=== PATIENT | female | born 1955 | race Caucasian/White ===

== ENCOUNTER 2021-01-25 09:37 | Outpatient (CLI) | payer MEDICARE, SELFPAY ==
--- NOTE | ~2021-01-25 | DEXA_ITS ---
Bone Density Report Name: Olga Flower Age: 65 Sex: Female Ethnicity: White Date of : 1955 Indication: postmenopausal; height loss; Referring Provider: Daniella James Study: Bone densitometry was performed. Exam Date: January 25, 2021 Accession number: [id number] Bone Density: Region BMD T-score Z-score Classification AP Spine (L1-L4) 0.922 -1.1 0.7 Osteopenia Femoral Neck (Left) 0.603 -2.2 -0.6 Osteopenia Total Hip (Left) 0.795 -1.2 0.1 Osteopenia Total Hip Bilateral Avg 0.759 -1.5 -0.2 Osteopenia Femoral Neck (Right) 0.591 -2.3 -0.7 Osteopenia Total Hip (Right) 0.722 -1.8 -0.5 Osteopenia World Health Organization criteria for BMD impression classify patients as: Normal (T-score at or above -1.0), Osteopenia (T-score between -1.0 and -2.5), or Osteoporosis (T-score at or below -2.5). 10-year Fracture Risk(1): Major Osteoporotic Fracture 12% Hip Fracture 2.2% Reported Risk Factors: [place] (), Neck BMD=0.591, BMI=27.9 (1) FRAX(R) Version 3.08. Fracture probability calculated for an untreated patient. Fracture probability may be lower if the patient has received treatment. Clinical Information Provided by Patient: Has used the following medications: Vitamin D Patient maximum height was 64.5 Menopause Age: 54 Drinks caffeinated beverages Onset of menses at age 12 Number of children 2 Impression: The patient has low bone mass, based on the Right Femoral Neck T-score. The patient has an estimated ten-year risk of hip fracture of 2.2% and an estimated ten-year risk of major fracture of 12%, based on the WHO FRAX algorithm. Discussion: BONE DENSITY IS LOW AT ONE OR MORE SKELETAL SITES. This patient's lowest T-score is low at one or more skeletal sites. It meets the World Health Organization's (WHO) criteria for ?low bone mass? (T-score between -1.0 and -2.5). The patient's 10-year risk of fracture as calculated by FRAX is less than the threshold where pharmacological therapy is recommended by the National Osteoporosis Foundation (NOF). However, all treatment decisions require clinical judgment and consideration of individual patient factors, including patient preferences, comorbidities, previous drug use, risk factors not captured in the FRAX model (e.g., frailty, falls, vitamin D deficiency, increased bone turnover, interval significant decline in bone density) and possible under or overestimation of fracture risk by FRAX. The patient should follow a healthful lifestyle (good nutrition with adequate calcium and vitamin D, and appropriate weight-bearing exercise). Follow-Up: Consider repeating this study in 2 to 3 years to reassess this patient's status, or sooner if there is some new clinical indication. Reported by: [facility] on 01/25/2021 10:05:00 AM.
--- NOTE | ~2021-01-25 | MM_ITS ---
EXAMINATION: MM screening robinson BI w irene HISTORY: Screening mammogram TECHNIQUE: Craniocaudal and mediolateral oblique 3-D tomosynthesis images were obtained and synthetic 2-D images were generated. CAD analysis was submitted and interpreted. COMPARISON: No prior mammogram is available for comparison at this institution. BREAST PARENCHYMAL COMPOSITION: There are scattered areas of fibroglandular density. FINDINGS: RIGHT BREAST: An asymmetry is present in the middle third of the lower-outer breast on the craniocaud al view. LEFT BREAST: There is no evidence of suspicious mass, calcification, or architectural distortion to s uggest malignancy. IMPRESSION: 1. Right breast asymmetry which may represent the patient's baseline however no comparison is current ly available. 2. Comparison with prior mammograms is necessary. BI-RADS Category 0: Incomplete: Needs comparison with prior mammograms. Reviewed, dictated and finalized at location A. IMPRESSION: 1. Right breast asymmetry which may represent the patient's baseline however no comparison is currently available. 2. Comparison with prior mammograms is necessary. BI-RADS Category 0: Incomplete: Needs comparison with prior mammograms.
== END 2021-01-25 09:38 | disposition home or self-care (01) ==
PROVIDERS: PCP Family Medicine; Visit Provider Nurse Practitioner Family
DX: Z12.31 Encounter for screening mammogram for malignant neoplasm of breast (principal); Z78.0 Asymptomatic menopausal state; M85.89 Other specified disorders of bone density and structure, multiple sites; R92.8 Other abnormal and inconclusive findings on diagnostic imaging of breast
CPT/HCPCS: 77063; 77067; 77080

== ENCOUNTER 2021-04-14 11:30 | Outpatient (CLI) | payer MEDICARE, SELFPAY ==
--- NOTE | ~2021-04-14 | MM_ITS ---
EXAMINATION: MM diagnostic robinson RT w irene HISTORY: Follow-up right breast asymmetry TECHNIQUE: Additional 3-D tomosynthesis images of the right breast were performed and synthetic 2-D i mages were generated. CAD analysis was submitted and interpreted. COMPARISON: Comparison to multiple prior studies sequentially, with oldest reviewed study dated 01/04. BREAST PARENCHYMAL COMPOSITION: Breast composed of scattered areas of fibroglandular density. FINDINGS: There are no suspicious masses, calcifications or architectural distortion in the right tequila ast to suggest malignancy. IMPRESSION: 1. No mammographic evidence for malignancy in the right breast. 2. Routine yearly screening mammogram and regular clinical breast examination are recommended. BI-RADS Category 1: Negative Reviewed, dictated and finalized at location A. IMPRESSION: 1. No mammographic evidence for malignancy in the right breast. 2. Routine yearly screening mammogram and regular clinical breast examination a re recommended. BI-RADS Category 1: Negative
== END 2021-04-14 11:31 | disposition home or self-care (01) ==
LOC: ANHIMG 11:35
PROVIDERS: PCP Family Medicine; Visit Provider Family Medicine
DX: R92.8 Other abnormal and inconclusive findings on diagnostic imaging of breast (principal)
CPT/HCPCS: 77061; 77065; G0279

== ENCOUNTER 2023-03-14 13:08 | Outpatient (CLI) | payer MEDICARE, SELFPAY ==
--- NOTE | ~2023-03-14 | US_ITS ---
EXAMINATION: US soft tissue LE LT DATE: 03/14/2023 14:05 INDICATION: Bump on anterior aspect of the left lower leg. TECHNIQUE: Multiple grayscale and Doppler ultrasound images of the left lower limb were obtained. COMPARISON: None FINDINGS: There is subcutaneous edema anterior to the proximal tibia. IMPRESSION: 1. Subcutaneous edema anterior to the proximal tibia. Reviewed, dictated and finalized at location E.
== END 2023-03-14 13:09 | disposition home or self-care (01) ==
PROVIDERS: PCP Family Medicine; Visit Provider Physician Assistant Medical
DX: M79.89 Other specified soft tissue disorders (principal); M25.849 Other specified joint disorders, unspecified hand
CPT/HCPCS: 76882

== ENCOUNTER 2024-04-24 12:55 | Outpatient (CLI) | payer MEDICARE, SELFPAY ==
--- NOTE | ~2024-04-24 | MM_ITS ---
EXAMINATION: MM screening robinson BI w irene HISTORY: Screening mammogram TECHNIQUE: Craniocaudal and mediolateral oblique 3-D tomosynthesis images were obtained and synthetic 2-D images were generated. CAD analysis was submitted and interpreted. COMPARISON: 04/14/2021, 01/25/2021 BREAST PARENCHYMAL COMPOSITION:Not Dense. There are scattered areas of fibroglandular density. FINDINGS: No suspicious mass, calcification, or architectural distortion are identified in either tequila ast to suggest malignancy. There has been no suspicious interval change. IMPRESSION: No mammographic evidence of malignancy. Recommend routine screening mammography in one year. BI-RADS Category 1: Negative Reviewed, dictated and finalized at location . 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
--- NOTE | ~2024-04-24 | DEXA_ITS ---
Bone Density Report Name: CHANTEL BRITO Age: 68 Sex: Female Ethnicity: White Date of : 1955 Indication: postmenopausal; screening for osteoporosis; height loss; Referring Provider: BRENDA BARRERA Study: Bone densitometry was performed. Exam Date: April 24, 2024 Accession number: [id number] Bone Density: Region BMD T-score Z-score Classification AP Spine(L1-L4) 0.931 -1.1 1.0 Osteopenia Femoral Neck (Left) 0.544 -2.7 -1.0 Osteoporosis Total Hip (Left) 0.773 -1.4 0.1 Osteopenia Femoral Neck (Right) 0.604 -2.2 -0.4 Osteopenia Total Hip (Right) 0.844 -0.8 0.7 Normal Total Hip Mean 0.809 -1.1 0.4 Osteopenia World Health Organization criteria for BMD impression classify patients as: Normal (T-score at or above -1.0), Osteopenia (T-score between -1.0 and -2.5), or Osteoporosis (T-score at or below -2.5). 10-year Fracture Risk: FRAX not reported because: Some T-score for Spine Total or Hip Total or Femoral Neck at or below -2.5 Clinical Information Provided by Patient: Has used the following medications: Vitamin D Patient maximum height was 64 Menopause Age: 54 No regular weight bearing exercise Drinks caffeinated beverages Onset of menses at age 13 Number of children 2 Impression: The patient has osteoporosis, based on the Left Femoral Neck T-score. Discussion: INCREASED RISK OF FRACTURE. BONE DENSITY IS UNDESIRABLY LOW AT ONE OR MORE SKELETAL SITES, CONSISTENT WITH POSTMENOPAUSAL OSTEOPOROSIS. This patient's lowest T-score meets the World Health Organization's (WHO) criteria for osteoporosis at one or more sites (T-score -2.5 or below). In untreated patients, the risk of osteoporotic fracture increases approximately two-fold for each 1.0 SD decrease in T-score. Low bone density is not the only risk factor for fracture; also consider factors such as patient's age, frailty or poor health, risk of falling, risk of injury, previous osteoporotic fracture, family history of osteoporosis, cigarette smoking, low body weight, etc. Not everyone with low bone mineral density has osteoporosis; osteomalacia and other metabolic bone disorders should also be considered. Patients who have osteoporosis should be evaluated for specific diseases and conditions (secondary causes) that may cause or contribute to bone loss. The [place] Association [employer] Clinical Endocrinologists (AACE) and National Osteoporosis Foundation (NOF) recommend pharmacologic intervention for all postmenopausal women whose T-score is in this range. The patient should follow a healthful lifestyle (good nutrition with adequate calcium and vitamin D, and appropriate weight-bearing exercise). Follow-Up: Consider a repeat BMD and Vertebral Fracture Assessment (VFA) exam in 2 years or sooner if medically necessary, to reassess this patient's status. Reported by: SINTIA on 04/24/2024 1:34:00 PM. Reviewed, dictated and finalized at location A. QUYNH
== END 2024-04-24 12:56 | disposition home or self-care (01) ==
LOC: ANHIMG 12:58
PROVIDERS: PCP Family Medicine; Visit Provider Nurse Practitioner Adult Health
DX: Z12.31 Encounter for screening mammogram for malignant neoplasm of breast (principal); M85.89 Other specified disorders of bone density and structure, multiple sites; Z78.0 Asymptomatic menopausal state
CPT/HCPCS: 77063; 77067; 77080

== ENCOUNTER 2024-08-04 19:29 | Observation (INO) | payer MEDICARE, SELFPAY ==
--- NOTE | ~2024-08-04 | CT_ITS ---
Non-contrast Head CT History: Altered mental status Technique: Axial non-contrast imaging of the brain was performed. Dose reduction technique was used on this scan by utilizing automated exposure control and iterative reconstruction technique. The dose -length product (DLP) was 681.00 mGy-cm. Findings: There is no evidence of intracranial hemorrhage, mass lesion, or acute infarct. Brain par enchyma appears normal. The ventricles and subarachnoid spaces are normal in size. The calvarium ap pears normal. The visualized paranasal sinuses and mastoid air cells are clear. Impression: No significant abnormality seen. Reviewed, dictated and finalized at location . NG TIER Impression: No significant abnormality seen.
--- OUTSIDE RECORDS SUMMARY | 2024-08-04 19:32 | XMS_ITS | Clinical Summary ---
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 Gender Identity Not on file Sexual Orientation Not on file Plan of Treatment Health Maintenance Due Date Last Done Comments DEXA Bone Density 1955 Hepatitis C Virus (HCV) Screening 1955 Colonoscopy 09/03/1999 Colorectal Cancer Screening 09/03/1999 Cologuard 2004 Immunochemical Fecal Occult Blood 2004 Mammogram 2004 Pneumococcal Immunization (5 0+ years) (1 of 1 - PCV) 2004 Zoster Immunization (1 of 2) 2004 Influenza Immunization (#1) 2024 SARS-COV-2 Immunization ( - season) 2024 Respiratory Syncytial Virus (RSV) Immunization (Adult) (1 - 1-dose 75+ series) 2029 DTaP/Tdap/Td Immunization Discontinued 10/06/2013 TdaP Immunization Completed 10/06/2013 Hepatitis B Immunization Aged Out No longer eligible based on patient's age to complete this topic Meningococcal Immunization (ACWY) Aged Out No longer eligible based on patient's age to complete this topic Rotavirus Immunization Aged Out No lo nger eligible based on patient's age to complete this topic
--- OUTSIDE RECORDS SUMMARY | 2024-08-04 19:32 | XMS_ITS | Clinical Summary ---
Author Organization [facility] [employer] Address [address] [place] [address] Care Team Providers Care Offal Roller Name Role Phone Alireza Cohen MD Primary Care Provider [phone] Source Comments [facility] [employer],non-owned Affiliates and Associated Physician Practices is amultiple site organization consisting of ambulatory clinics and hospital sitesin [place], [place], [place] and [place]. This disclosure is being madepursuant to the Care Everywhere program and may not contain all information available regarding this patient. Last updated 18.[facility] [employer] Allergies No known active allergies Medications * Be aware that medications may not be up to date on this document. Alwaysverify current medications with the patient. Medication Sig Dispensed Refills Start Date End Date Status multivitamin daily (THERAGRAN) tablet Take 1 tablet by mouth daily with food Active fluticasone furoate (FLONASE SENSIMIST/VERAMYST) 27.5 MCG/SPRAY nasal spray [place] 1 spray into each nostril 2 times daily Active Vitamin D, Cholecalciferol, 50 MCG (1999) CAPS Take 1 tablet by mouth Active lisinopril (PRINIVIL; ZESTRIL) 2.5 MG tablet TAKE 1 TABLET ONCE DAILY 90 tablet 3 05/16/2020 Active Active Problems Problem Noted Date Diagnosed Date HTN (hypertension) 11/29/2014 Hypercholesteremia 11/29/2014 Family History Medical History Relation Name Comments CVA<55(male) Father Hypertension Father CVA<65(female) Mother Thyroid Disease Mother Thyroid Disease Sister Cancer - Breast Neg Hx Cancer - Ovarian Neg Hx Relation Name Status Comments Father Alive Mother Alive Sister Social History Tobacco Use Types Packs/Day Years Used Date Smoking Tobacco: Never Smokeless Tobacco: Never Alcohol Use Standard Drinks/Week Comments Yes 0 (1 standard drink = 0.6 oz pur e alcohol) 1 glass wine per month approx Sex and Gender Information Value Date Recorded Sex Assigned at Not on file Gender Identity Not on file Sexual Orientation Not on file Last Filed Vital Signs Vital Sign Reading Time Taken Comments Blood Pressure 132/69 11/26/2019 9:43 AM CDT Pulse 75 11/26/2019 9:43 AM CDT Temperature 36.1 C (97 F) 11/26/2019 9:43 AM CDT Respiratory Rate 16 06/07/2015 3:05 PM 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 Oxygen Saturation 99% 11/26/2019 9:43 AM CDT Inhaled Oxygen Concentration - - Weight 74.8 kg (165 lb) 11/26/2019 9:43 AM CDT Height 162.6 cm (5' 4 ) 11/26/2019 9:43 AM CDT Body Mass Index 28.32 11/26/2019 9:43 AM CDT Plan of Treatment Health Maintenance Due Date Last Done Comments COLOGUARD (AGES 45-75) - COLON CA SCREENING [address] COLONOGRAPHY - COLON CA SCREENING 1955 FIT - COLON CA SCREENING 1955 FLEX SIG - COLON CA SCREENING 1955 HEPATITIS C SCREENING 08/28/1972 DTAP/TDAP/TD VACCINES (1 - Tdap) 1973 PNEUMOCOCCAL VACCINE 50+ (1 of 1 - PCV) 2004 ZOSTER VACCINE (1 of 2) 2004 MAMMOGRAM 01/22/2018 01/23/2016, 01/04/2014 COLONOSCOPY - COLON CA SCREENING 11/30/2019 11/29/2009 (Previously completed) Colorectal Cancer Screening 11/30/2019 SCREENING FOR DIABETES 11/22/2022 0, 10/10/2018, 05/10/2017 COVID-19 VACCINE (1 - 2023- season) 2024 INFLUENZA VACCINE (#1) 2024 DEPRESSION SCREENING 06/10/2024 MEDICARE AWV CALENDAR YEAR 2024 LIPID TESTING 11/22/2024 11/23/2019, 05/0 08/2018, 05/10/2017, Additional history exists Respiratory Syncytial Virus (RSV) Vaccine Pt: or over 60 yrs (1 - 1-dose 75+ series) 2029 BONE DENSITY TESTING Completed 01/23/2016 HEPATITIS B VACCINE Aged Out No longe r eligible based on patient's age to complete this topic HIB VACCINE Aged Out No longer eligi ble based on patient's age to complete this topic HPV VACCINE Aged Out No longer eligi ble based on patient's age to complete this topic MENINGOCOCCAL (Group B) VACCINE Aged Out No longer eligible based on patient's age to complete this topic MENINGOCOCCAL VACCINE Aged Out No hayley jovan eligible based on patient's age to complete this topic Procedures Procedure Name Priority Date/Time Associated Diagnosis Comments COMPREHENSIVE METABOLIC PANEL Routine 11/23/2019 9:56 AM CDT Essential hypertension Slow transit constipation LIPID PROFILE Routine 11/23/2019 9:56 AM CDT Hypercholesteremia DEXA BONE DENSITY 2 SITES Routine 01/23/2016 9:27 AM CDT Encounter for screening for osteoporosis MAMMO BILAT SCREENING Routine 01/23/2016 9:11 AM CDT Encounter for screening mammogram for malignant neoplasm of breast from Last 3 Months or Most Recently Relevant to Health Maintenance Results * (ABNORMAL) COMPREHENSIVE METABOLIC PANEL (11/23/2019 9:56 AM CDT) Glucose 96 70 - 125 mg/dL 11/23/2019 12:43 PM CDT [facility] Sodium 139 136 - 145 mmol/L 11/23/2019 12:43 PM CDT [facility] Potassium 4.0 3.4 - 4.5 mmol/L 11/23/2019 12:43 PM CDT [facility] Chloride 105 98 - 107 mmol/L 11/23/2019 12:43 PM CDT [facility] CO2 26 22 - 29 mmol/L 11/23/2019 12:43 PM CDT [facility] Calcium 9.33 8.4 - 10.2 mg/dL 11/23/2019 12:43 PM CDT [facility] Anion Gap 12 10 - 20 mmol/L 11/23/2019 12:43 PM CDT [facility] BUN 9.5(L) 9.8 - 20.1 mg/dL 11/23/2019 12:43 PM CDT [facility] Creatinine 0.72 0.57 - 1.11 mg/dL 11/23/2019 12:43 PM CDT [facility] eGFR by MDRD >60 >60 mL/min/1.7 3m2 11/23/2019 12:43 PM CDT [facility] eGFR by MDRD >60 >60 mL/min/1.7 3m2 11/23/2019 12:43 PM CDT [facility] Alkaline Phosphatase 87 40 - 150 U/L 11/23/2019 12:43 PM CDT [facility] ALT 17 5 - 55 U/L 11/23/2019 12:43 PM CDT [facility] AST 20 5 - 34 U/L 11/23/2019 12:43 PM CDT [facility] Protein Total 7.4 6.4 - 8.3 gm/dL 11/23/2019 12:43 PM CDT [facility] Albumin 3.9 3.5 - 5.0 gm/dL 11/23/2019 12:43 PM CDT [facility] Globulin Total 3.5 2.6 - 4.0 gm/dL 11/23/2019 12:43 PM CDT [facility] Albumin/Globulin Ratio 1.1 0.9 - 1.6 11/23/2019 12:43 PM CDT [facility] Bilirubin Total 0.5 0.2 - 1.2 mg/dL 11/23/2019 12:43 PM CDT [facility] Blood BLOOD SPECIMEN / Unknown Venipuncture / Unknown 11/23/2019 9:56 AM CDT 11/23/2019 9:56 AM CDT Alireza Cohen MD LAB - CHEMISTRY ORD ERABLES [facility] [address] [place], [place] [address] * (ABNORMAL) LIPID PROFILE (11/23/2019 9:56 AM CDT) Cholesterol 225(H) <200 mg/dL 11/23/2019 12:43 PM CDT [facility] Triglycerides 121 <150 mg/dL 11/23/2019 12:43 PM CDT [facility] HDL Cholesterol 52 >40 mg/dL 0 12:43 PM CDT [facility] Chol HDL Ratio 4.3 1.0 - 6.0 11/23/2019 12:43 PM CDT [facility] LDL Calculated 149(H) 65 - 130 mg/dL 11/23/2019 12:43 PM CDT [facility] VLDL Calculated 24 <=30 mg/dL 0 12:43 PM CDT [facility] Blood BLOOD SPECIMEN / Unknown Venipuncture / Unknown 11/23/2019 9:56 AM CDT 11/23/2019 9:56 AM CDT Narrative [facility] - 11/23/2019 12:43 PM CDT Lipid Profile Comment: CHOLESTEROL LEVEL..................CLINICAL INTERPRETATION LESS THAN 200 MG/DL..............................DESIRABLE 200-239 MG/DL..............................BORDERLINE HIGH GREATER THAN 240 MG/DL................................HIGH LDL-CHOLESTEROL LEVEL..............CLINICAL INTERPRETATION LESS THAN 100 MG/DL................................OPTIMAL 100-129 MG/DL.................................NEAR OPTIMAL GREATER THAN 160 MG/DL...........................HIGH RISK HDL RISK LEVEL GREATER THEN 60 MG/DL............................DECREASED 40-60 MG/DL........................................AVERAGE LESS THAN 40 MG/DL...............................INCREASED TRIGLYCERIDE LEVEL..................CLINICAL INTERPRETATION LESS THAN 150 MG/DL...............................DESIRABLE 150-199 MG/DL...............................BORDERLINE HIGH 200-499 MG/DL..........................................HIGH GREATER THAN 500..................................VERY HIGH THE NATIONAL CHOLESTEROL EDUCATION PROGRAM HAS SET THE ABOVE GUIDELINES (REFERANCE VALUES) FOR CHOLESTEROL AND HDL. RISK ASSOCIATED WITH CHOLESTEROL/HDL RATIOS RISK....................MALE RATIO.............FEMALE RATIO 1/2 AVERAGE.................<3.4.......................<3.3 LOW RISK.................... 4.0 ...................... 3.8 AVERAGE..................... 5.0 ...................... 4.5 2X AVERAGE.................. 9.5 ...................... 7.0 3X AVERAGE...................>23........................>11 Alireza Cohen MD LAB - CHEMISTRY ORD ERABLES [facility] [address] [place] [address], [facility] * DEXA BONE DENSITY [id number] (01/23/2016 9:27 AM CDT) Anatomical Region Laterality Modality Radiographic Angeilna ging 01/23/2016 9:36 AM CDT Impressions 01/23/2016 10:18 AM CDT 1. Osteopenia. 2. Some increased risk for fracture. 3. Followup in 1 to 2 years. Narrative 01/23/2016 10:18 AM CDT BONE MINERAL DENSITY (01/23/2016) FINDINGS: 1. Hip joints: A. BMD 0.619. B. T score -1.5. Z score -0.7. 2. Lumbar spine: A. BMD 1.117. B. T score -0.7. Z score 0.3. Procedure Note Masood Azul MD - 01/23/2016 BONE MINERAL DENSITY (01/23/2016) FINDINGS: 1. Hip joints: A. BMD 0.619. B. T score -1.5. Z score -0.7. 2. Lumbar spine: A. BMD 1.117. B. T score -0.7. Z score 0.3. IMPRESSION 1. Osteopenia. 2. Some increased risk for fracture. 3. Followup in 1 to 2 years. Mary Ellen Paez APRN-ISA DEXA ORDERABLES * ABHI SCREENING BILATERAL DIGITAL [id number] (01/23/2016 9:11 AM CDT) Anatomical Region Laterality Modality Breast Bilateral Mammography 01/24/2016 9:30 AM CDT Impressions 01/24/2016 9:57 AM CDT No radiographic evidence of malignancy identified in either breast. BI-RADS Category 2. Bilateral mammography recheck suggested in one year. A) A negative report should not delay a biopsy if a dominant or clinically suspicious mass is present. B) Adenosis and dense breasts may obscure an underlying neoplasm. C) Study interpreted with computer aided detection. MQSA BI-RADS Categories: Category 0 - needs additional imaging evaluation. Category 1 - negative. Category 2 - benign findings. Category 3 - probably benign findings, but short interval follow-up is recommended. Category 4 - suspicious abnormality and biopsy should be considered though the lesion may well be benign. Category 5 - highly suggestive of malignancy and appropriate action should be taken. Narrative 01/24/2016 9:57 AM CDT BILATERAL DIGITAL SCREENING MAMMOGRAPHY WITH 3-D TOMOSYNTHESIS AND COMPUTER-AIDED DETECTION: (01/23/2016) HISTORY: No complaints listed referable to either breast. Screening examination. Breast cancer in paternal aunt at age 70. FINDINGS: 2-D mammography and 3-D tomosynthesis performed. Heterogeneously dense breast parenchymal pattern similar to 01/04/2014. Benign-appearing calcification. No specific finding of malignancy noted in either breast. Mary Ellen Paez APRN-JACKM MAMMO ORDERABLE S from Last 3 Months or Most Recently Relevant to Health Maintenance Care Teams Offal Roller Relationship Specialty Start Date End Date Alireza Cohen MD [address] [place], [place] [id number] PCP - General Internal Medicine 10/13/14
--- OUTSIDE RECORDS SUMMARY | 2024-08-04 19:32 | XMS_ITS | Encounter Summary ---
Author Organization [facility] Address [address] [place] [address] Care Team Providers Care Jig Box Operator Name Role Phone Alireza Cohen MD Primary Care Provider [phone] Encounter Details Date Type Department Care Team (Late st Contact Info) Description 11/27/2021 Lab Requisition [facility] Care DermPath Lab [address] [place] [address] Fausto Heard MD [address] [address] [place] [address] Social History Tobacco Use Types Packs/Day Years Used Date Smoking Tobacco: Never Smokeless Tobacco: Never Alcohol Use Standard Drinks/Week Comments Yes 0 (1 standard drink = 0.6 oz pur e alcohol) 1 glass wine per month approx Sex and Gender Information Value Date Recorded Sex Assigned at Not on file Gender Identity Not on file Sexual Orientation Not on file documented as of this encounter Plan of Treatment Not on file documented as of this encounter Procedures Procedure Name Priority Date/Time Associated Diagnosis Comments DERMATOPATHOLOGY Routine 11/24/2021 12:0 0 AM CDT documented in this encounter Results * DERMATOPATHOLOGY (11/24/2021 12:00 AM CDT) Case Report Dermatopathology Report Case: [id number] Authorizing Provider: Fausto Heard MD Collected: 11/24/2021 12:00 AM Ordering Location: [facility] DermPath Lab Received: 11/27/2021 03:41 PM Pathologist: Ginger Quiroga MD Specimen: Skin, left lower leg post 2 1:13 PM T DERMATOPATHOLOGY LABORATORY Final Diagnosis Specimen A. SKIN, left lower leg post: BENIGN VERRUCOUS KERATOSIS, INFLAMED AND ERODED (L82.1) POST-INFLAMMATORY PIGMENT ALTERATION (L81.9) 2 1:13 PM T DERMATOPATHOLOGY LABORATORY Clinical History Angioma vs ISK R/O dysplasia. Path # [id number]. 1:13 PM T DERMATOPATHOLOGY LABORATORY Gross Description Specimen A: Received is one formalin filled container labeled with the patient's name and designated left lower leg post. The specimen consists of a shave biopsy measuring [id number]. Jar 0. 1:13 PM T DERMATOPATHOLOGY LABORATORY Microscopic Description Specimen A. SKIN, left lower leg post: Sections show hyperkeratosis, papillomatosis, hypergranulosis, and acanthosis. The epidermis is focally eroded. Inflammatory cells are present within the dermis. These histological findings can be seen in a verruca vulgaris or a seborrheic keratosis. There is abundant melanin within melanophages around the superficial vascular plexus. 2 1:13 PM T DERMATOPATHOLOGY LABORATORY Disclaimer An external and internal positive and negative controls are appropriate for the histochemical, immunohistochemical and immunofluorescence stain(s) in this case (if any), except where stated explicitly. The performance characteristics of the stain(s) cited in this report were developed and its performance characteristic determined by the Dermatopathology Laboratory at [facility], directed by Dr. Melony Willis. These tests need not be, and therefore are not, approved by the [place] Food and Drug Administration. The tests are used for clinical purposes. Billing Codes Specimen Charges Stain Charges 58439 1 2 1:13 PM CDT DERMATOPATHOLOGY LABORATORY Embedded Images 1:13 PM T DERMATOPATHOLOGY LABORATORY Pathology/Cytolog y TISSUE SPECIMEN FROM SKIN / Unknown 11/24/2021 11/27/2021 3:41 PM CDT Fausto Heard MD LAB - PATHOLOGY/CYTO LOGY ORDERABLES DERMATOPATHOLOGY LABORATORY [facility] - Department of Dermatology [facility] Medicine [address] [place] [address], [address] [phone] documented in this encounter Visit Diagnoses Not on filedocumented in this encounter Care Teams Jig Box Operator Relationship Specialty Start Date End Date Alireza Cohen MD [address] [place] [address] PCP - General Internal Medicine 10/13/14 documented as of this encounter
--- OUTSIDE RECORDS SUMMARY | 2024-08-04 19:32 | XMS_ITS | Clinical Summary ---
Author Organization [facility] Address [facility] [place] [address] Care Team Providers Care Medication Nurse Name Role Phone Unavailable Primary Care Provider Unavailabl e Social History Tobacco Use Types Packs/Day Years Used Date Smoking Tobacco: Never Assessed Comments Unknown Sex and Gender Information Value Date Recorded Sex Assigned at Not on file Legal Sex Female 4:15 PM CDT Gender Identity Not on file Sexual Orientation Not on file Plan of Treatment Health Maintenance Due Date Last Done Comments Colorectal Cancer Screening Colonoscopy (10 Years) 1954 Hepatitis C 1972 DTaP, Tdap and Td Vaccines ( 1 - Tdap) 1973 Mammogram Screening 1994 Zoster Vaccines (1 of 2) 2004 Dexa Scan (General) 09/03/2019 Pneumococcal Vaccine: 65+ Ye ars (1 of 1 - PCV) 09/03/2019 COVID-19 Vaccine ( - 2023-2 5 season) 2024 Influenza Adult (#1) 2024 RSV Immunization or 60+ Years (1 - 1-dose 75+ series) 2029 Meningococcal B Vaccine Aged Out No l onger eligible based on patient's age to complete this topic Meningococcal Vaccine Aged Out No hayley jovan eligible based on patient's age to complete this topic RSV Immunizations Under 20 Months Aged Out No longer eligible based on patient's age to complete this topic
--- OUTSIDE RECORDS SUMMARY | 2024-08-04 19:32 | XMS_ITS | Referral Summary ---
Author Organization [facility] [employer] Address [address] [place] [address] Care Team Providers Care Fitter Tacker Name Role Phone Alireza Cohen MD Primary Care Provider [phone] Source Comments [facility],non-owned Affiliates and Associated Physician Practices is amultiple site organization consisting of ambulatory clinics and hospital sitesin [place], [place], [place] and [place]. This disclosure is being madepursuant to the Care Everywhere program and may not contain all information available regarding this patient. Last updated 18.[facility] [employer] Allergies No known active allergies Medications * Be aware that medications may not be up to date on this document. Alwaysverify current medications with the patient. Medication Sig Dispensed Refills Start Date End Date Status multivitamin daily (THERAGRAN) tablet Take 1 tablet by mouth daily with food Active fluticasone furoate (FLONASE SENSIMIST/VERAMYST) 27.5 MCG/SPRAY nasal spray [place] 1 spray into each nostril 2 times daily Active Vitamin D, Cholecalciferol, 50 MCG (1999) CAPS Take 1 tablet by mouth Active lisinopril (PRINIVIL; ZESTRIL) 2.5 MG tablet TAKE 1 TABLET ONCE DAILY 90 tablet 3 05/16/2020 Active Active Problems Problem Noted Date Diagnosed Date HTN (hypertension) 11/29/2014 Hypercholesteremia 11/29/2014 Social History Tobacco Use Types Packs/Day Years [...] CDT Respiratory Rate 16 06/07/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 Oxygen Saturation 99% 11/26/2019 9:43 AM CDT Inhaled Oxygen Concentration - - Weight 74.8 kg (165 lb) 11/26/2019 9:43 AM CDT Height 162.6 cm (5' 4 ) 11/26/2019 9:43 AM CDT Body Mass Index 28.32 11/26/2019 9:43 AM CDT Plan of Treatment Not on file Procedures Procedure Name Priority Date/Time Associated Diagnosis [...] - 29 mmol/L 11/23/2019 12:43 PM CDT [facility] Calcium 9.33 8.4 - 10.2 mg/dL 11/23/2019 12:43 PM CDT [facility] Anion Gap 12 10 - 20 mmol/L 11/23/2019 12:43 PM CDT [facility] BUN 9.5(L) 9.8 - 20.1 mg/dL 11/23/2019 12:43 PM CDT [facility] Creatinine 0.72 0.57 - 1.11 mg/dL 11/23/2019 12:43 PM CDT [facility] eGFR by MDRD >60 >60 mL/min/1.7 3m2 11/23/2019 12:43 PM CDT [facility] eGFR by MDRD >60 >60 mL/min/1.7 3m2 11/23/2019 12:43 PM CDT [facility] Alkaline Phosphatase 87 40 - 150 U/L 11/23/2019 12:43 PM CDT [facility] ALT 17 5 - 55 U/L 11/23/2019 12:43 PM CDT [facility] AST 20 5 - 34 U/L 11/23/2019 12:43 PM CDT [facility] Protein Total 7.4 6.4 - 8.3 gm/dL 11/23/2019 12:43 PM CDT [facility] Albumin 3.9 3.5 - 5.0 gm/dL 11/23/2019 12:43 PM CDT [facility] Globulin Total 3.5 2.6 - 4.0 gm/dL 11/23/2019 12:43 PM CDT [facility] Albumin/Globulin Ratio 1.1 0.9 - 1.6 11/23/2019 12:43 PM CDT [facility] Bilirubin Total 0.5 0.2 - 1.2 mg/dL 11/23/2019 12:43 PM CDT [facility] Blood BLOOD SPECIMEN / Unknown Venipuncture / Unknown 11/23/2019 9:56 AM CDT 11/23/2019 9:56 AM CDT Alireza Cohen MD LAB - CHEMISTRY ORD ERABLES [facility] [address] [place] [address], [facility] * (ABNORMAL) LIPID PROFILE (11/23/2019 9:56 AM [...] Cohen MD LAB - CHEMISTRY ORD ERABLES [facility] [address] [place], [place] [address] [place] * DEXA BONE DENSITY 35535 (01/23/2016 9:27 AM CDT) Anatomical Region Laterality Modality Radiographic Angelina ging 01/23/2016 9:36 AM CDT Impressions 01/23/2016 [...] 1 to 2 years. Mary Ellen Paez APRN-CNM DEXA ORDERABLES * ABHI SCREENING BILATERAL DIGITAL [...] noted in either breast. Mary Ellen Paez DIRECTOR SURGICAL-CNM MAMMO ORDERABLE S from Last 3 Months or Most Recently Relevant to Health Maintenance Care Teams Fitter Tacker Relationship Specialty Start Date End Date Alireza Cohen MD [address] [place] [address] PCP - General Internal Medicine 10/13/14
--- OUTSIDE RECORDS SUMMARY | 2024-08-04 19:32 | XMS_ITS | Patient Health Summary ---
Author Organization [facility] Address [address] [place] [address] Care Team Providers Care Repair Service Clerk Name Role Phone Alireza Cohen MD Primary Care Provider [phone] Note from [facility],non-owned Affiliates and Associated Physician Practices is amultiple site organization consisting of ambulatory clinics and hospital sitesin [place], [place], [place] and [place]. This disclosure is being madepursuant to the Care Everywhere program and may not contain all information available regarding this patient. Last updated 18.[facility] Allergies No known active allergies Medications * Be aware that medications may not be up to date on this document. Alwaysverify current medications with the patient. 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 Oxygen Saturation 99% 11/26/2019 9:43 AM CDT Inhaled Oxygen Concentration - - Weight 74.8 kg (165 lb) 11/26/2019 9:43 AM CDT Height 162.6 cm (5' 4 ) 11/26/2019 9:43 AM CDT Body Mass Index 28.32 11/26/2019 9:43 AM CDT Procedures * DERMATOPATHOLOGY(Performed 11/24/2021) * LAB RESULTS ORDER(Performed 12/04/2019) * LIPID PROFILE(Performed 11/23/2019) Performed for Hypercholesteremia * TSH(Performed 11/23/2019) Performed for Essential hypertension, Slow transit constipation * COMPREHENSIVE METABOLIC PANEL(Performed 11/23/2019) Performed for Essential hypertension, Slow transit constipation * LIPID PROFILE(Performed 10/10/2018) Performed for Hypercholesteremia * COMPREHENSIVE METABOLIC PANEL(Performed 10/10/2018) Performed for Essential hypertension, Hypercholesteremia * CBC W AUTO DIFFERENTIAL(Performed 10/10/2018) Performed for Essential hypertension, Hypercholesteremia * LIPID PROFILE(Performed 05/10/2017) Performed for Essential hypertension, benign * COMPREHENSIVE METABOLIC PANEL(Performed 05/10/2017) Performed for Essential hypertension, benign * CBC W AUTO DIFFERENTIAL(Performed 05/10/2017) Performed for Essential hypertension, benign * DEXA BONE DENSITY 2 SITES(Performed 01/23/2016) Performed for Encounter for screening for osteoporosis * MAMMO BILAT SCREENING(Performed 01/23/2016) Performed for Encounter for screening mammogram for malignant neoplasm of breast * LAB RESULTS ORDER(Performed 06/07/2014) * MAMMO BILAT SCREENING(Performed 01/04/2014) Performed for Other screening mammogram Results * DERMATOPATHOLOGY (11/24/2021 12:00 AM CDT) Case Report Dermatopathology Report Case: [id number] Authorizing Provider: Fausto Heard MD Collected: 11/24/2021 12:00 AM Ordering Location: [facility] DermPath Lab Received: 11/27/2021 03:41 PM Pathologist: Ginger Quiroga MD Specimen: Skin, left lower leg post 2 1:13 PM CDT DERMATOPATHOLOGY LABORATORY Final Diagnosis Specimen A. SKIN, left lower leg post: BENIGN VERRUCOUS KERATOSIS, INFLAMED AND ERODED (L82.1) POST-INFLAMMATORY PIGMENT ALTERATION (L81.9) 2 1:13 PM CDT DERMATOPATHOLOGY LABORATORY Clinical History Angioma vs ISK R/O dysplasia. Path # [id number]. 2 1:13 PM CDT DERMATOPATHOLOGY LABORATORY Gross Description Specimen A: Received is one formalin filled container labeled with the patient's name and designated left lower leg post. The specimen consists of a shave biopsy measuring [id number]. Jar 0. 1:13 PM CDT DERMATOPATHOLOGY LABORATORY Microscopic Description Specimen A. SKIN, left lower leg post: Sections show hyperkeratosis, papillomatosis, hypergranulosis, and acanthosis. The epidermis is focally eroded. Inflammatory cells are present within the dermis. These histological findings can be seen in a verruca vulgaris or a seborrheic keratosis. There is abundant melanin within melanophages around the superficial vascular plexus. 2 1:13 PM CDT DERMATOPATHOLOGY LABORATORY Disclaimer An external and internal positive and negative controls are appropriate for the histochemical, immunohistochemical and immunofluorescence stain(s) in this case (if any), except where stated explicitly. The performance characteristics of the stain(s) cited in this report were developed and its performance characteristic determined by the Dermatopathology Laboratory at [facility], directed by Dr. Melony Willis. These tests need not be, and therefore are not, approved by the [place] Food and Drug Administration. The tests are used for clinical purposes. Billing Codes Specimen Charges Stain Charges 62670 1 2 1:13 PM CDT DERMATOPATHOLOGY LABORATORY Embedded Images 2 1:13 PM CDT DERMATOPATHOLOGY LABORATORY Pathology/Cytolog y TISSUE SPECIMEN FROM SKIN / Unknown 11/24/2021 11/27/2021 3:41 PM CDT Fausto Heard MD LAB - PATHOLOGY/CYTO LOGY ORDERABLES DERMATOPATHOLOGY LABORATORY [facility] - Department of Dermatology [address], [address] [phone] * LAB RESULTS ORDER (12/04/2019 2:03 PM CDT) Only the most recent of2 resultswithin the time period is included. Narrative 12/04/2019 2:03 PM CDT Ordered by an unspecified provider. Scanned Document LAB - THERAPEUTIC DR UG MONITORING ORDERABLES * (ABNORMAL) COMPREHENSIVE METABOLIC PANEL (11/23/2019 9:56 AM CDT) Only the most recent of3 resultswithin the time period is included. Glucose 96 70 - 125 mg/dL 11/23/2019 [...] - 10.2 mg/dL 11/23/2019 12:43 PM CDT [facility] Anion Gap 12 10 - 20 mmol/L 11/23/2019 12:43 PM CDT [facility] BUN 9.5(L) 9.8 - 20.1 mg/dL 11/23/2019 12:43 PM CDT [facility] Creatinine 0.72 0.57 - 1.11 mg/dL 11/23/2019 12:43 PM CDT [facility] eGFR by MDRD >60 >60 mL/min/1.7 3m2 11/23/2019 12:43 PM CDT [facility] eGFR by MDRD >60 >60 mL/min/1.7 3m2 11/23/2019 12:43 PM CDT [facility] Alkaline Phosphatase 87 40 - 150 U/L 11/23/2019 12:43 PM CDT [facility] ALT 17 5 - 55 U/L 11/23/2019 12:43 PM CDT [facility] AST 20 5 - 34 U/L 11/23/2019 12:43 PM CDT [facility] Protein Total 7.4 6.4 - 8.3 gm/dL 11/23/2019 12:43 PM CDT [facility] Albumin 3.9 3.5 - 5.0 gm/dL 11/23/2019 12:43 PM CDT [facility] Globulin Total 3.5 2.6 - 4.0 gm/dL 11/23/2019 12:43 PM CDT [facility] Albumin/Globulin Ratio 1.1 0.9 - 1.6 11/23/2019 12:43 PM CDT [facility] Bilirubin Total 0.5 0.2 - 1.2 mg/dL 11/23/2019 12:43 PM CDT [facility] Blood BLOOD SPECIMEN / Unknown Venipuncture / Unknown 11/23/2019 9:56 AM CDT 11/23/2019 9:56 AM CDT Alireza Cohen MD LAB - CHEMISTRY ORD ERABLES [facility] [address] * TSH (11/23/2019 9:56 AM CDT) TSH 2.2723 0.35 - 4.94 uIU/mL 11/23/2019 1:11 PM CDT [facility] Blood BLOOD SPECIMEN / Unknown Venipuncture / Unknown 11/23/2019 9:56 AM CDT 11/23/2019 9:56 AM CDT Alireza Cohen MD LAB - CHEMISTRY ORD ERABLES [facility] [address] [place] [address], [facility] * (ABNORMAL) LIPID PROFILE (11/23/2019 9:56 AM CDT) Only the most recent of3 resultswithin the time period is included. Cholesterol 225(H) <200 mg/dL 11/23/2019 12:43 PM [...] Cohen MD LAB - CHEMISTRY ORD ERABLES [facility] [address] [place] [address], [facility] * (ABNORMAL) CBC WITH DIFFERENTIAL (10/10/2018 10:27 AM CDT) Only the most recent of2 resultswithin the time period is included. [facility] Signature WBC 8.9 4.0 - 10.0 x10E9/L 10/10/2018 10:52 AM CDT [facility] RBC 4.51 3.93 - 5.22 x10E12/L 10/10/2018 10:52 AM CDT [facility] Hemoglobin 13.7 11.2 - 15.7 gm/dL 10/10/2018 10:52 AM CDT [facility] Hematocrit 41.9 34.1 - 44.9 % 10/10/2018 10:52 AM CDT [facility] MCV 92.9 78.0 - 100.0 fl 10/10/2018 10:52 AM CDT [facility] MCH 30.4 25.6 - 34.0 pg 10/10/2018 10:52 AM CDT [facility] MCHC 32.7 32.3 - 36.5 gm/dL 10/10/2018 10:52 AM CDT [facility] RDW 13.0 11.6 - 14.4 % 10/10/2018 10:52 AM CDT [facility] MPV 10.7 9.4 - 12.4 fl 10/10/2018 10:52 AM CDT AM LABORATORY Platelet Count 270 163 - 369 x10E9/L 10/10/2018 10:52 AM CDT AM LAB[facility]ORY Neutrophils % 48.3 40.0 - 75.0 % 10/10/2018 10:52 AM CDT [facility] Lymphocytes % 43.0 19.3 - 53.1 % 10/10/2018 10:52 AM CDT [facility] Monocytes % 7.4 4.7 - 12.5 % 10/10/2018 10:52 AM CDT [facility] Eosinophils % 0.9 0.7 - 7.0 % 10/10/2018 10:52 AM CDT [facility] Basophils % 0.3 0.1 - 1.2 % 10/10/2018 10:52 AM CDT [facility] Immature Granulocytes 0.1 0 - 0.5 % 10/10/2018 10:52 AM CDT [facility] Neutrophil Absolute 4.30 1.56 - 6.13 x10E9/L 10/10/2018 10:52 AM CDT [facility] Lymphocytes Absolute 3.84(H) 1.18 - 3.74 x10E9/L 10/10/2018 10:52 AM CDT [facility] Monocytes Absolute 0.66 0.24 - 0.86 x10E9/L 10/10/2018 10:52 AM CDT [facility] Eosinophils Absolute 0.08 0.04 - 0.54 x10E9/L 10/10/2018 10:52 AM CDT [facility] Basophils Absolute 0.03 0.01 - 0.08 x10E9/L 10/10/2018 10:52 AM CDT [facility] Immature Granulocytes Absolute 0.01 0 - 0.03 x10E9/L 10/10/2018 10:52 AM CDT [facility] nRBC Auto 0 <=0 /100 WBC 10/10/2018 10:52 AM CDT AM LAB[facility]ORY nRBC Absolute 0.00 <=0 x10E9/L 10/10/2018 10:52 AM CDT [facility] Blood BLOOD SPECIMEN / Unknown Venipuncture / Unknown 10/10/2018 10:27 AM CDT 10/10/2018 10:47 AM CDT Alireza Cohen MD LAB - HEMATOLOGY OR DERABLES [facility] [address] [place] [address], [facility] * DEXA BONE DENSITY 43804 (01/23/2016 9:27 AM CDT) Anatomical Region Laterality [...] in 1 to 2 years. Mary Ellen MAGDALENO DEXA ORDERABLES * ABHI SCREENING BILATERAL DIGITAL [id number] (01/23/2016 9:11 AM CDT) Only the most recent of2 resultswithin the time period is included. Anatomical Region Laterality Modality Breast Bilateral Mammography [...] noted in either breast. Mary Ellen Paez MOTOR GENERATOR SET OPERATOR-CNM MAMMO ORDERABLE S Care Teams Repair Service Clerk Relationship Specialty Start Date End Date Alireza Cohen MD [facility] [place] [address] PCP - General Internal Medicine 10/13/14
[2024-08-04 19:36] VITALS: BP 148/71; PULSE 74; RESP 15; TEMP 36.3; O2SAT 100
[2024-08-04 21:03] LABS: Basophils Absolute Auto 0.1 K/mm3 (0.0-0.1); Basophils Percent Auto 0.4 % (0.2-1.2); Eosinophils Absolute Auto 0.1 K/mm3 (0-0.3); Eosinophils Percent Auto 0.5 % (0-4.4); Hematocrit 42.3 % (37.0-47.0); Hemoglobin 14.1 g/dL (12.0-15.0); Immature Granulocyte Absolute 0.04 K/mm3 (0.00-0.031); Immature Granulocyte Percent A 0.3 % (0-0.5); Lymphocytes Absolute Auto 3.01 K/mm3 (0.9-3.2); Lymphocytes Percent Auto 20.9 % (18.3-44.2); Mean Corpuscular HGB Conc 33.3 g/dl (32-36); Mean Corpuscular Hemoglobin 29.9 pg (26-34); Mean Corpuscular Volume 89.8 fl (80-100); Mean Platelet Volume 10.5 fl (7.4-10.4); Neutrophils Absolute Auto 10.2 K/mm3 (1.3-6.7); Neutrophils Percent Auto 70.9 % (45.5-73.1); Platelet Count Result 271 k/mm3 (150-375); Red Blood Count 4.71 M/mm3 (4.2-5.4); Red Cell Distribution Width 13.2 % (11.5-14.5); White Blood Count 14.4 K/mm3 (4.5-10.0)
[2024-08-04 21:16] LABS: Alanine Aminotransferase 24 U/L (6-35); Albumin Level 4.6 g/dL (3.5-5.1); Alkaline Phosphatase 102 U/L (38-126); Anion Gap 13 mmol/L (4-12); Aspartate Amino Transferase 35 U/L (14-36); Bilirubin,Total 0.6 mg/dL (0.2-1.3); Blood Urea Nitrogen 9 mg/dL (7-17); Carbon Dioxide 23 mmol/L (22-30); Chloride 101 mmol/L (98-107); Estimated CRCL calculation 91 ml/min; Estimated Glomerular Filt Rate > 60; Glucose 115 mg/dL (65-110); Prothrombin Time 13.7 Seconds (11.1-14.7); Sodium 137 mmol/L (137-145)
[2024-08-05] VITALS (9 sets, daily range): BP systolic 132–142; BP diastolic 69–97; PULSE 71–89; RESP 18–20; TEMP 36.6–37.2; O2SAT 98–100; BMI 28.0
--- NOTE | 2024-08-05 03:59 | PC.NURSE ---
Patient's son, Anshul, to triage desk stating his mother is seeming like her normal self but more forgetful, stating she needs to be reminded every 20 minutes or so. He is headed back to room 6 to be with his mother at this time.
--- OUTSIDE RECORDS SUMMARY | 2024-08-05 04:11 | XMS_ITS | Clinical Summary ---
Author Organization [facility] Address [address] [place] [address] Care Team Providers Care Installer Helper Name Role Phone Alireza Cohen MD Primary Care Provider [phone] Source Comments [facility],non-owned Affiliates and Associated Physician Practices is amultiple site organization consisting of ambulatory clinics and hospital sitesin [place], [place], [place] and [place]. This disclosure is being madepursuant to the Care Everywhere program and may not contain all information available regarding this patient. Last updated 18.[facility] Allergies No known active allergies Medications * Be aware that medications may not be up to date on this document. Alwaysverify current medications with the patient. 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 Oxygen Saturation 99% 11/26/2019 9:43 AM CDT [...] - 10.2 mg/dL 11/23/2019 12:43 PM CDT [facility] Anion Gap 12 10 - 20 mmol/L 11/23/2019 12:43 PM CDT [facility] BUN 9.5(L) 9.8 - 20.1 mg/dL 11/23/2019 12:43 PM CDT [facility] Creatinine 0.72 0.57 - 1.11 mg/dL 11/23/2019 12:43 PM CDT [facility] eGFR by MDRD >60 >60 mL/min/1.7 3m2 11/23/2019 12:43 PM CDT [facility] eGFR by MDRD >60 >60 mL/min/1.7 3m2 11/23/2019 12:43 PM CDT [facility] Alkaline Phosphatase 87 40 - 150 U/L 11/23/2019 12:43 PM CDT [facility] ALT 17 5 - 55 U/L 11/23/2019 12:43 PM CDT [facility] AST 20 5 - 34 U/L 11/23/2019 12:43 PM CDT [facility] Protein Total 7.4 6.4 - 8.3 gm/dL 11/23/2019 12:43 PM CDT [facility] Albumin 3.9 3.5 - 5.0 gm/dL 11/23/2019 12:43 PM CDT [facility] Globulin Total 3.5 2.6 - 4.0 gm/dL 11/23/2019 12:43 PM CDT [facility] Albumin/Globulin Ratio 1.1 0.9 - 1.6 11/23/2019 12:43 PM CDT [facility] Bilirubin Total 0.5 0.2 - 1.2 mg/dL 11/23/2019 12:43 PM CDT [facility] Blood BLOOD SPECIMEN / Unknown Venipuncture / Unknown 11/23/2019 9:56 AM CDT 11/23/2019 9:56 AM CDT Alireza Cohen MD LAB - CHEMISTRY ORD ERABLES [facility] [address] [place], [place] [address] * (ABNORMAL) LIPID PROFILE (11/23/2019 9:56 AM [...] Cohen MD LAB - CHEMISTRY ORD ERABLES [facility] [address] [place] [address], [facility] * DEXA BONE DENSITY [id number] (01/23/2016 9:27 AM CDT) Anatomical Region Laterality [...] Recently Relevant to Health Maintenance Care Teams Installer Helper Relationship Specialty Start Date End Date Alireza Cohen MD [address] [place], [place] [address] PCP - General Internal Medicine 10/13/14
--- OUTSIDE RECORDS SUMMARY | 2024-08-05 04:11 | XMS_ITS | Referral Summary ---
Author Organization [facility] Address [address] [place] [address] Care Team Providers Care Veterans Service Officer Name Role Phone Alireza Cohen MD Primary Care Provider [phone] Source Comments [facility],non-owned Affiliates and Associated Physician Practices is amultiple site organization consisting of ambulatory clinics and hospital sitesin [place], [place], [place] and [place]. This disclosure is being madepursuant to the Care Everywhere program and may not contain all information available regarding this patient. Last updated 18.[facility] Allergies No known active allergies Medications * Be aware that medications may not be up to date on this document. Alwaysverify current medications with the patient. Medication Sig Dispensed Refills Start Date End Date Status multivitamin daily (THERAGRAN) tablet Take 1 tablet by mouth daily with food Active fluticasone furoate (FLONASE SENSIMIST/VERAMYST) 27.5 MCG/SPRAY nasal spray [place] 1 spray into each nostril 2 times [...] Respiratory Rate 16 06/07/2015 3:05 PM DIRECTOR STYLE Oxygen Saturation 99% 11/26/2019 9:43 AM CDT [...] - 29 mmol/L 11/23/2019 12:43 PM CDT [facility] Calcium 9.33 8.4 - 10.2 mg/dL 11/23/2019 12:43 PM CDT [facility] Anion Gap 12 10 - 20 mmol/L 11/23/2019 12:43 PM CDT [facility] BUN 9.5(L) 9.8 - 20.1 mg/dL 11/23/2019 12:43 PM CDT [facility] Creatinine 0.72 0.57 - 1.11 mg/dL 11/23/2019 12:43 PM CDT [facility] eGFR by MDRD >60 >60 mL/min/1.7 3m2 11/23/2019 12:43 PM CDT [facility] eGFR by MDRD >60 >60 mL/min/1.7 3m2 11/23/2019 12:43 PM CDT [facility] Alkaline Phosphatase 87 40 - 150 U/L 11/23/2019 12:43 PM CDT [facility] ALT 17 5 - 55 U/L 11/23/2019 12:43 PM CDT [facility] AST 20 5 - 34 U/L 11/23/2019 12:43 PM CDT [facility] Protein Total 7.4 6.4 - 8.3 gm/dL 11/23/2019 12:43 PM CDT [facility] Albumin 3.9 3.5 - 5.0 gm/dL 11/23/2019 12:43 PM CDT [facility] Globulin Total 3.5 2.6 - 4.0 gm/dL 11/23/2019 12:43 PM CDT [facility] Albumin/Globulin Ratio 1.1 0.9 - 1.6 11/23/2019 12:43 PM CDT [facility] Bilirubin Total 0.5 0.2 - 1.2 mg/dL 11/23/2019 12:43 PM CDT [facility] Blood BLOOD SPECIMEN / Unknown Venipuncture / Unknown 11/23/2019 9:56 AM CDT 11/23/2019 9:56 AM CDT Alireza Cohen MD LAB - CHEMISTRY ORD ERABLES [facility] [address] [place] [address], [facility] * (ABNORMAL) LIPID PROFILE (11/23/2019 [...] Cohen MD LAB - CHEMISTRY ORD ERABLES [facility] [address] [place], [place] [address] * DEXA BONE DENSITY [id number] (01/23/2016 9:27 AM CDT) Anatomical Region Laterality [...] noted in either breast. Mary Ellen Paez FUR WEIGHER-CNM MAMMO ORDERABLE S from Last 3 Months or Most Recently Relevant to Health Maintenance Care Teams Veterans Service Officer Relationship Specialty Start Date End Date Alireza Cohen MD [address] [place] [address] PCP - General Internal Medicine 10/13/14
--- OUTSIDE RECORDS SUMMARY | 2024-08-05 04:11 | XMS_ITS | Clinical Summary ---
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
--- OUTSIDE RECORDS SUMMARY | 2024-08-05 04:11 | XMS_ITS | Clinical Summary ---
Author Organization [facility] Address [facility] [place] [address] Care Team Providers Care Mechanical Assembler Name Role Phone Unavailable Primary Care Provider [...]
--- OUTSIDE RECORDS SUMMARY | 2024-08-05 04:11 | XMS_ITS | Encounter Summary ---
Author Organization [facility] Address [address] [facility] [place] [address] Care Team Providers Care Beaming Inspector Name Role Phone Alireza Cohen MD Primary Care Provider [phone] Encounter Details Date Type Department Care Team (Late st Contact Info) Description 11/27/2021 Lab Requisition [facility] Care DermPath Lab [address] [address] [place] [address] Fausto Heard MD [address] [place] [address] Social History Tobacco Use Types Packs/Day [...] AM CDT) Case Report Dermatopathology Report Case: [id number] Authorizing Provider: Fausto Heard MD Collected: 11/24/2021 12:00 AM Ordering Location: [facility] DermPath Lab Received: 11/27/2021 03:41 PM Pathologist: Ginger Quiroga MD Specimen: Skin, left lower leg post 2 1:13 PM T DERMATOPATHOLOGY LABORATORY Final Diagnosis Specimen A. SKIN, left lower leg post: BENIGN VERRUCOUS KERATOSIS, INFLAMED AND ERODED (L82.1) POST-INFLAMMATORY PIGMENT ALTERATION (L81.9) 2 1:13 PM T DERMATOPATHOLOGY LABORATORY Clinical History Angioma vs ISK R/O dysplasia. Path # [id number]. 1:13 PM T DERMATOPATHOLOGY LABORATORY Gross Description Specimen A: Received is one formalin filled container labeled with the patient's name and designated left lower leg post. The specimen consists of a shave biopsy measuring [id number]. Jar 0. 1:13 PM T DERMATOPATHOLOGY LABORATORY [...] characteristic determined by the Dermatopathology Laboratory at [facility], directed by Dr. Melony Willis. These tests need not be, and therefore are not, approved by the [place] Food and Drug Administration. The tests are used for clinical purposes. Billing Codes Specimen Charges Stain Charges 78423 1 2 1:13 PM CDT DERMATOPATHOLOGY LABORATORY Embedded Images 1:13 PM T DERMATOPATHOLOGY LABORATORY Pathology/Cytolog y TISSUE SPECIMEN FROM SKIN / Unknown 11/24/2021 11/27/2021 3:41 PM CDT Fausto Heard MD LAB - PATHOLOGY/CYTO LOGY ORDERABLES DERMATOPATHOLOGY LABORATORY [facility] - Department of Dermatology [facility] Medicine [address] [place] [address], [address] [phone] documented in this encounter Visit Diagnoses Not on filedocumented in this encounter Care Teams Beaming Inspector Relationship Specialty Start Date End Date Alireza Cohen MD [address] [place] [address] PCP - General Internal Medicine 10/13/14 documented as of this encounter
--- OUTSIDE RECORDS SUMMARY | 2024-08-05 04:11 | XMS_ITS | Patient Health Summary ---
Author Organization [facility] Address [address] [facility] [place] [address] Care Team Providers Care Proof Coin Collector Name Role Phone Alireza Cohen MD Primary Care Provider [phone] Note from [facility],non-owned Affiliates and Associated Physician Practices is amultiple site organization consisting of ambulatory clinics and hospital sitesin [place], [place], [place] and [place]. This disclosure is being madepursuant to the Care Everywhere program and may not contain all information available regarding this patient. Last updated 18.[facility] Allergies No known active allergies Medications * Be aware that medications may not be up to date on this document. Alwaysverify current medications with the patient. * multivitamin daily (THERAGRAN) tablet Take 1 tablet by mouth daily with food * fluticasone furoate (FLONASE SENSIMIST/VERAMYST) 27.5 MCG/SPRAY nasal spray [place] 1 spray into each nostril 2 times [...] CDT Respiratory Rate 16 06/07/2015 3:05 PM COFFEE ATTENDANT Oxygen Saturation 99% 11/26/2019 9:43 AM CDT [...] AM CDT) Case Report Dermatopathology Report Case: [id number] Authorizing Provider: Fausto Heard MD Collected: 11/24/2021 12:00 AM Ordering Location: [facility] DermPath Lab Received: 11/27/2021 03:41 PM Pathologist: Ginger Quiroga MD Specimen: Skin, left lower leg post 2 1:13 PM CDT DERMATOPATHOLOGY LABORATORY Final Diagnosis Specimen A. SKIN, left lower leg post: BENIGN VERRUCOUS KERATOSIS, INFLAMED AND ERODED (L82.1) POST-INFLAMMATORY PIGMENT ALTERATION (L81.9) 2 1:13 PM CDT DERMATOPATHOLOGY LABORATORY Clinical History Angioma vs ISK R/O dysplasia. Path # [id number]. 2 1:13 PM CDT DERMATOPATHOLOGY LABORATORY Gross Description Specimen A: Received is one formalin filled container labeled with the patient's name and designated left lower leg post. The specimen consists of a shave biopsy measuring [id number]. Jar 0. 1:13 PM CDT DERMATOPATHOLOGY LABORATORY [...] characteristic determined by the Dermatopathology Laboratory at [facility], directed by Dr. Melony Willis. These tests need not be, and therefore are not, approved by the [place] Food and Drug Administration. The tests are used for clinical purposes. Billing Codes Specimen Charges Stain Charges 22288 1 2 1:13 PM CDT DERMATOPATHOLOGY LABORATORY Embedded Images 2 1:13 PM CDT DERMATOPATHOLOGY LABORATORY Pathology/Cytolog y TISSUE SPECIMEN FROM SKIN / Unknown 11/24/2021 11/27/2021 3:41 PM CDT Fausto Heard MD LAB - PATHOLOGY/CYTO LOGY ORDERABLES DERMATOPATHOLOGY LABORATORY [facility] - Department of Dermatology [address], [address] [phone] * LAB RESULTS ORDER (12/04/2019 2:03 PM [...] Cohen MD LAB - CHEMISTRY ORD ERABLES [facility] [address] * TSH (11/23/2019 9:56 AM CDT) TSH 2.2723 0.35 - 4.94 uIU/mL 11/23/2019 1:11 PM CDT [facility] Blood BLOOD SPECIMEN / Unknown Venipuncture / Unknown 11/23/2019 9:56 AM CDT 11/23/2019 9:56 AM CDT Alireza Cohen MD LAB - CHEMISTRY ORD ERABLES [facility] [address] [place] [address], [facility] * (ABNORMAL) LIPID PROFILE (11/23/2019 [...] - CHEMISTRY ORD ERABLES [facility] [address] [place] [address], [facility] * (ABNORMAL) CBC WITH DIFFERENTIAL (10/10/2018 10:27 AM CDT) Only the most recent of2 resultswithin the time period is included. [facility] Signature WBC 8.9 4.0 - 10.0 x10E9/L [...] - 75.0 % 10/10/2018 10:52 AM CDT [facility] Lymphocytes % 43.0 19.3 - 53.1 % 10/10/2018 10:52 AM CDT [facility] Monocytes % 7.4 4.7 - 12.5 % 10/10/2018 10:52 AM CDT [facility] Eosinophils % 0.9 0.7 - 7.0 % 10/10/2018 10:52 AM CDT [facility] Basophils % 0.3 0.1 - 1.2 % 10/10/2018 10:52 AM CDT [facility] Immature Granulocytes 0.1 0 - 0.5 % 10/10/2018 10:52 AM CDT [facility] Neutrophil Absolute 4.30 1.56 - 6.13 x10E9/L 10/10/2018 10:52 AM CDT [facility] Lymphocytes Absolute 3.84(H) 1.18 - 3.74 x10E9/L 10/10/2018 10:52 AM CDT [facility] Monocytes Absolute 0.66 0.24 - 0.86 x10E9/L 10/10/2018 10:52 AM CDT [facility] Eosinophils Absolute 0.08 0.04 - 0.54 x10E9/L 10/10/2018 10:52 AM CDT [facility] Basophils Absolute 0.03 0.01 - 0.08 x10E9/L 10/10/2018 10:52 AM CDT [facility] Immature Granulocytes Absolute 0.01 0 - 0.03 x10E9/L 10/10/2018 10:52 AM CDT [facility] nRBC Auto 0 <=0 /100 WBC 10/10/2018 10:52 AM CDT AM LABORATORY nRBC Absolute 0.00 <=0 x10E9/L 10/10/2018 10:52 AM CDT [facility] Blood BLOOD SPECIMEN / Unknown Venipuncture / Unknown 10/10/2018 10:27 AM CDT 10/10/2018 10:47 AM CDT Alireza Cohen MD LAB - HEMATOLOGY OR DERABLES [facility] [address] [place] [address], [facility] * DEXA BONE DENSITY 34111 (01/23/2016 9:27 AM CDT) Anatomical Region Laterality [...] noted in either breast. Mary Ellen Paez SURVEY RODMAN-CNM MAMMO ORDERABLE S Care Teams Proof Coin Collector Relationship Specialty Start Date End Date Alireza Cohen MD [facility] [place] [address] PCP - General Internal Medicine 10/13/14
[2024-08-05 04:35] LABS: BEDSIDEPREGUCG Negative (Negative)
[2024-08-05 04:56] LABS: Add Urine Microscopic? YES; Appearance Urine Clear (Clear); Bacteria Urine None Seen /hpf; Bilirubin Urine Negative (Negative); Blood Urine Negative (Negative); Color Urine Yellow (Yellow); Glucose Urine UA Negative (Negative); Ketones Urine Trace mg/dL (Negative); Leukocyte Esterase Ur 1+ LEU/UL (Negative); Need Manual Microscopic Reviewed; Nitrate Urine Negative (Negative); Non Pathogenic Casts 0-2; Protein Urine Negative (Negative); RBC Urine 0-2 /hpf (0-2); Specific Grav Ur 1.011 (1.001-1.035); Squamous Epithelial Cell Urine None Seen /hpf (Few); Urobilinogen Urine 0.2 mg/dL (<2.0); WBC Urine 0-5 /hpf (0-3); pH Urine 5.5 (5.0-9.0)
[2024-08-05 05:05] LABS: Influenza A QL RT-PCR Negative (Negative); Influenza B QL RT-PCR Negative (Negative); RSV RNA, RT-PCR Negative (Negative); SARS-CoV-2 RNA PCR Negative (Negative)
--- NOTE | 2024-08-05 06:32 | ED_ITS ---
HPI - General Adult General Chief complaint: Unspecified Stated complaint: mental fog starting this morning Time Seen by Provider: 08/05/24 04:03 History of Present Illness HPI narrative: 68-year-old female presents emergency department for evaluation for feeling like she was and a ?brain fog ?all day. Family states that at approximately 8:00 a.m. the patient was found to be very confused was having repetitive questioning. They state that she was acting appropriately but was doing repetitive questioning. They noticed no focal neural deficit, no gait weakness. Family states that the patient began acting normal at approximately 9:00 p.m. tonight. Patient reports she has been undergoing a lot of stress and has not been sleeping well. Patient denies any change in medications. Patient denies any prior CVA history. Patient denies any recent coughs colds or fevers denies any falls or injuries. At time of evaluation patient feels she is back to her baseline. Related Data Home Medications ?Medication ?Instructions ?Recorded ?Confirmed ?Last Taken ?Type fluticasone propionate 50 1 spray intranasal DAILY 04/14/20 03/20/24 Unknown History mcg/actuation nasal spray,suspension (Flonase Allergy Relief) aspirin 81 mg tablet,delayed 81 mg PO DAILY 11/11/20 03/20/24 Unknown History release (Adult Low Dose Aspirin) cholecalciferol (vitamin D3) 25 25 mcg PO DAILY 07/31/21 03/20/24 Unknown History mcg (1,000 unit) capsule docosahexaenoic acid (dha)-epa 120 1 cap PO DAILY 07/31/21 03/20/24 Unknown History mg-180 mg capsule (Fish Oil) multivitamin 1 tablet PO DAILY 07/31/21 03/20/24 Unknown History Lactobacillus rhamnosus GG 5 PO DAILY 12/30/23 03/20/24 Unknown History billion cell oral powder packet (Culturelle Kids Probiotics) Allergies Allergy/AdvReac Type Severity Reaction Status Date / Time No Known Allergies Allergy Verified 08/04/24 19:31 Review of Systems 2 Review of Systems: All systems reviewed & are unremarkable except as noted in HPI and below PMFSH Past Medical History Medical History Asymptomatic menopause BMI 26.0-26.9,adult BMI 27.0-27.9,adult COVID-19 Excessive cerumen in both ear canals Hyperlipidemia Hypertension Inguinal hernia Screening for lipid disorders Screening for malignant neoplasm of breast Screening for osteoporosis Screening for thyroid disorder Thyroid disease Vertigo Family History Family History Father Parkinson disease Hypertension Heart disease COVID-19 Hospice care patient Mother Cerebrovascular accident Hypertension Sibling Hypertension Nervous disorder Tobacco abuse Polycystic kidney disease Social History Social History Smoking status: Never smoker Second hand tobacco smoke exposure: Yes Alcohol intake: current Substance use: never Substance use type: does not use Do You Feel Safe in your Home?: Yes Lack of Transportation: No Lack of Food: Never True Current Housing: I Have Housing Concerned About Future Housing: No Difficulty Paying Gas/Electric Bills: No Difficulty Paying for Meds: No Currently Unemployed: No Education: Bachelor's Degree Difficulty w/ Childcare or Family Care: No Living arrangements: with family Occupation/Education: retired 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 HEAD: normocephalic, atraumatic. EYES: PERRLA/EOMI, conjunctivae clear. NOSE: Normal no drainage EARS:TMS clear with good light reflex. THROAT: Pharynx clear, no exudate. NECK: Supple. No adenopathy, no masses. RESPIRATORY: Airway patent, respirations nonlabored. Clear to auscultation bilaterally, no rales, rhonchi, wheezing. CARDIOVASCULAR: Regular rate and rhythm without murmurs rubs or gallops. ABDOMINAL: Soft, nontender, nondistended, normal bowel sounds MUSCULOSKELETAL: Moves all extremities. Strength/ROM intact, No edema, No calf tenderness. NEURO: Alert. Cranial nerves II through XII intact. Grossly intact SKIN: Warm, dry. Normal Color Course Vital Signs Vital signs: Vital Signs Temperature 97.4 F L 08/04/24 19:36 Pulse Rate 74 08/04/24 19:36 Respiratory Rate 15 08/04/24 19:36 Blood Pressure 148/71 H 08/04/24 19:36 Pulse Oximetry 100 02/25/25 19:36 Temperature 97.4 F L 08/04/24 19:36 Pulse Rate 83 08/05/24 06:57 Respiratory Rate 18 08/05/24 06:57 Blood Pressure 136/73 08/05/24 06:57 Pulse Oximetry 100 08/05/24 06:57 Medical Decision Making MDM Narrative Medical decision making narrative: 68-year-old female presented to the emergency department for evaluation for an extended period of confusion. Patient does not recall the majority of the day or her repetitive questioning. Patient feels she was in a fog for the majority of the day. At time of evaluation patient feels she is back to her baseline. Patient is afebrile but does have a leukocytosis of 14.4. Hemoglobin of 14.1. Patient's INR is 1.0. Patient has no acute abnormalities on her CMP UA was negative for infection patient was negative for influenza RSV and for COVID. Head CT was negative for acute intracranial pathology shows no evidence of acute intracranial abnormality, no ICH no mass effect or edema. No skull fracture. Case will be discussed with the hospitalist for admission for concern for transient global amnesia Differential Diagnosis Differential Diagnosis: TIA, CVA, transient global amnesia, UTI, COVID, RSV, influenza, pneumonia Vital Signs Vital Signs: Vital Signs Temperature 97.4 F L 08/04/24 19:36 Pulse Rate 74 08/04/24 19:36 Respiratory Rate 15 08/04/24 19:36 Blood Pressure 148/71 H 08/04/24 19:36 Pulse Oximetry 100 08/04/24 19:36 Temperature 97.4 F L 08/04/24 19:36 Pulse Rate 83 08/05/24 06:57 Respiratory Rate 18 08/05/24 06:57 Blood Pressure 136/73 08/05/24 06:57 Pulse Oximetry 100 08/05/24 06:57 Lab Data Lab results reviewed: Yes I reviewed the patient's lab results. 08/04/24 20:57 08/04/24 20:57 Labs: Lab Results 08/04/24 08/05/24 08/05/24 Range/Units 20:57 04:21 04:33 WBC 14.4 H (4.5-10.0) K/mm3 RBC 4.71 (4.2-5.4) M/mm3 Hgb 14.1 (12.0-15.0) g/dL Hct 42.3 (37.0-47.0) % MCV 89.8 (80-100) fl MCH 29.9 (26-34) pg MCHC 33.3 (32-36) g/dl RDW 13.2 (11.5-14.5) % Plt Count 271 (150-375) k/mm3 MPV 10.5 H (7.4-10.4) fl Immature Gran % (Auto) 0.3 (0-0.5) % Neut % (Auto) 70.9 (45.5-73.1) % Lymph % (Auto) 20.9 (18.3-44.2) % [place] % (Auto) 7.0 (2.6-8.5) % Eos % (Auto) 0.5 (0-4.4) % Baso % (Auto) 0.4 (0.2-1.2) % Lymph # (Auto) 3.01 (0.9-3.2) K/mm3 [place] # (Auto) 1.0 H (0.1-0.6) K/mm3 Eos # (Auto) 0.1 (0-0.3) K/mm3 Baso # (Auto) 0.1 (0.0-0.1) K/mm3 Abs Immat Gran (auto) 0.04 H (0.00-0.031) K/mm3 Absolute Neuts (auto) 10.2 H (1.3-6.7) K/mm3 Absolute Nucleated RBC 0.000 (0.0-0.012) K/mm3 Nucleated RBC % 0.0 (0.0-0.2) % PT 13.7 (11.1-14.7) Seconds INR 1.0 APTT 28.0 (22.3-36.8) Seconds Sodium 137 (137-145) mmol/L Potassium 4.0 (3.4-5.0) mmol/L Chloride 101 (98-107) mmol/L Carbon Dioxide 23 (22-30) mmol/L Anion Gap 13 H (4-12) mmol/L BUN 9 (7-17) mg/dL Creatinine 0.48 L (0.7-1.0) mg/dL Estim Creat Clear Calc 91 ml/min Estimated GFR > 60 (59 - ) Glucose 115 H (65-110) mg/dL Calcium 10.0 (8.4-10.2) mg/dL Total Bilirubin 0.6 (0.2-1.3) mg/dL AST 35 (14-36) U/L ALT 24 (6-35) U/L Alkaline Phosphatase 102 (38-126) U/L Total Protein 8.0 (6.3-8.2) g/dL Albumin 4.6 (3.5-5.1) g/dL Urine Color Yellow (Yellow) Urine Appearance Clear (Clear) Urine pH 5.5 (5.0-9.0) Ur Specific [place] 1.011 (1.001-1.035) Urine Protein Negative (Negative) mg/dL Urine Glucose (UA) Negative (Negative) mg/dL Urine Ketones Trace H (Negative) mg/dL Ur Blood (Man) Negative (Negative) Urine Nitrate Negative (Negative) Urine Bilirubin Negative (Negative) Urine Urobilinogen 0.2 (<2.0) mg/dL Add Ur Microanalysis Reviewed Leukocyte Esterase Rfl 1+ H (Negative) SANCHO/UL Urine RBC 0-2 (0-2) /hpf Urine WBC 0-5 (0-3) /hpf Ur Squamous Epith Cells None seen (Few) /hpf Urine Bacteria None seen /hpf Urine Casts 0-2 POC Urine HCG, Qual Negative (Negative) Influenza A (RT-PCR) Negative (Negative) Influenza B (RT-PCR) Negative (Negative) RSV (RT-PCR) Negative (Negative) SARS-CoV-2 RNA (RT-PCR) Negative (Negative) Imaging Data Radiologist's impression: Impressions Head CT 08/05/24 06:16 Impression: No significant abnormality seen. Discharge Plan Discharge Clinical Impression: TGA (transient global amnesia) Patient Disposition: Still a Patient Condition: Stable Patient Language: Portuguese Prescriptions: No Action fluticasone propionate [Flonase Allergy Relief] 50 mcg/actuation spray,suspension 1 spray intranasal DAILY Rx Instructions: administer into each nostril aspirin [Adult Low Dose Aspirin] 81 mg tablet,delayed release (DR/EC) 81 mg PO DAILY cholecalciferol (vitamin D3) 25 mcg (1,000 unit) capsule 25 mcg PO DAILY multivitamin Tablet 1 tablet PO DAILY Fish Oil 120-180 mg capsule 1 cap PO DAILY Culturelle Kids Probiotics 5 billion cell powder in packet PO DAILY lisinopril 2.5 mg tablet 2.5 mg PO DAILY Qty: 90 1RF alendronate [Fosamax] 70 mg tablet 70 mg PO WEEKLY Qty: 4 6RF Follow-up/Referrals: New Arias MD [Primary Care Provider] -
--- NOTE | 2024-08-05 08:46 | PC.NURSE ---
Breakfast tray ordered.
--- NOTE | 2024-08-05 12:44 | P.HP_ITS ---
H&P: HPI History of Present Illness Date/Time: 08/05/24 12:44 Chief Complaint: Altered Mental Status Narrative: 68 y/o F presented here for further evaluation of altered mental status with PMH of HLD, HTN, hypothyroidism (resolved per patient), and vertigo. The patient presents here from a local urgent care on 08/04 for further evaluation of mental fog . She initially sought care at a local believing h er symptoms were secondary to a UTI. UA at the urgent care hold out a UTI. She was directed to the emergency department for further testing and evaluation. She reports that the altered mental status was discovered/recognized at 8:00 a.m. on 08/04 later after she woke up. Alteration was further described as repetitive questioning, forgetting to eat, forgetting her routine, not remembering conversations with her family members. She denied associated focal weakness, focal numbness, dysarthria, changes in vision, dizziness, headache, gait disturbance/balance disruption. Confusion resolved around 9:00 p.m. on 08/04, patient believes it started to improve around 6-7 p.m. She reports the confusion has been precipitated by increased stress and lack of sleep. She estimates she has been sleeping 7-8 hrs per night, denies any recent deviation from this except while in the ER overnight last night. She denies any new or recent changes to her medications. She does report she started a Magnesium breakthrough (bio optimizer) supplement 250 mg daily approximately 1 week ago. No previous history of CVA or seizures. She denies any recreational drug use or, fever, chills, body aches, cough, shortness of breath, abdominal pain, or chest pain. ETOH use is once per month. Denies any recent trauma or head strike. Initial VS at presentation: 97.4? F, HR 74, RR 15, 148/71, and 100% on RA. ED workup showed: WBC 14.4, no anemia, creatinine 0.48 and GFR >60, glucose 115, normal coags, no significant electrolyte derangements, UA showed trace ketones and 1+ leuks with no bacteria (otherwise unremarkable), and viral PCR negative. Head CT showed no significant abnormality. Review of Systems Review of Systems: All systems reviewed & are unremarkable except as noted in HPI and below PMFSH Past Medical History Medical History (Updated 08/05/24 @ 16:50 by Simran Gan APRN) Vitamin D deficiency Excessive cerumen in both ear canals Vertigo Inguinal hernia Hyperlipidemia Screening for lipid disorders Asymptomatic menopause Screening for malignant neoplasm of breast Screening for osteoporosis COVID-19 Thyroid disease hypothyroidism, resolved per patient Hypertension Family History Family History Father Parkinson disease Hypertension Heart disease COVID-19 Hospice care patient Mother Cerebrovascular accident Hypertension Sibling Hypertension Nervous disorder Tobacco abuse Polycystic kidney disease Social History Social History Smoking status: Never smoker Second hand tobacco smoke exposure: Yes Alcohol intake: never Substance use: never Substance use type: does not use Do You Feel Safe in your Home?: Yes Lack of Transportation: No Lack of Food: Never True Current Housing: I Have Housing Concerned About Future Housing: No Difficulty Paying Gas/Electric Bills: No Difficulty Paying for Meds: No Currently Unemployed: No Education: Bachelor's Degree Difficulty w/ Childcare or Family Care: No Living arrangements: with family Occupation/Education: retired 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): Female Spiritual care concerns: No Meds Home Medications and Allergies Home Medications ?Medication ?Instructions ?Recorded ?Confirmed ?Type fluticasone propionate 50 1 spray intranasal DAILY 04/14/20 08/05/24 History mcg/actuation nasal spray,suspension (Flonase Allergy Relief) aspirin 81 mg tablet,delayed 81 mg PO DAILY 11/11/20 08/05/24 History release (Adult Low Dose Aspirin) cholecalciferol (vitamin D3) 25 25 mcg PO DAILY 07/31/21 08/05/24 History mcg (1,000 unit) capsule docosahexaenoic acid (dha)-epa 120 1 cap PO DAILY 07/31/21 08/05/24 History mg-180 mg capsule (Fish Oil) multivitamin 1 tablet PO DAILY 07/31/21 08/05/24 History lisinopril 2.5 mg tablet 2.5 mg PO DAILY #90 tabs 04/29/23 08/05/24 Rx alendronate 70 mg tablet (Fosamax) 70 mg PO WEEKLY #4 tabs 05/12/24 08/05/24 Rx loratadine 10 mg tablet (Allergy 10 mg PO DAILY 08/05/24 08/05/24 History Relief (loratadine)) vitamin D3 125 mcg (5,000 1 cap PO DAILY@0800 08/05/24 08/05/24 History unit)-vitamin K2 90 mcg capsule Allergies Allergy/AdvReac Type Severity Reaction Status Date / Time No Known Allergies Allergy Verified 08/05/24 13:24 Vital Signs Vital Signs - 24 hr 08/04/24 19:36 08/05/24 01:06 08/05/24 03:58 Temperature 97.4 F L Pulse Rate 74 86 89 Respiratory Rate 15 19 Blood Pressure 148/71 H 138/94 H Pulse Oximetry 100 99 08/05/24 03:58 08/05/24 04:01 08/05/24 06:57 Temperature Pulse Rate 88 83 Respiratory Rate 18 18 18 Blood Pressure 139/69 136/73 Pulse Oximetry 100 100 100 08/05/24 08:45 Temperature 99 F Pulse Rate 72 Respiratory Rate 20 Blood Pressure 132/72 Pulse Oximetry 100 Exam Const: General: comfortable and no acute distress Other: , female, nontoxic appearance HENMT: Face/Nose/Sinus: Normal nares present Mouth: Yes moist mucous membranes Eyes: General: appearance normal, both eyes and all related structures Sclera: sclerae normal Pupils: Equal, round and reactive pupils present EOM: EOMs intact bilaterally Resp: Effort & Inspection: normal respiratory effort Auscultation: clear to auscultation bilaterally Cardio: Rate: regular rate Rhythm: regular rhythm Other: S1-S2 present without murmur, rub, ectopy GI: Other: Abdomen soft, nondistended, nontender. Skin: General skin exam: normal color and no rashes or lesions noted Wounds: no wounds Neuro: Speech: normal speech Motor exam (neuro): 5/5 motor strength present throughout Sensory Exam: normal sensation Other: A&O x4. NIHSS: 0. Extrem: General: normal to inspection Psych: Mental Status: mental status grossly normal Affect: normal affect Other: Good insight and judgment, very pleasant H&P: Results Labs Labs: Short CBC 08/04/24 Range/Units 20:57 WBC 14.4 H (4.5-10.0) K/mm3 Hgb 14.1 (12.0-15.0) g/dL Hct 42.3 (37.0-47.0) % Plt Count 271 (150-375) k/mm3 BMP 08/04/24 20:57 Sodium 137 Potassium 4.0 Chloride 101 Carbon Dioxide 23 BUN 9 Creatinine 0.48 L Glucose 115 H Calcium 10.0 Liver Function 08/04/24 Range/Units 20:57 Total Bilirubin 0.6 (0.2-1.3) mg/dL AST 35 (14-36) U/L ALT 24 (6-35) U/L Alkaline Phosphatase 102 (38-126) U/L Albumin 4.6 (3.5-5.1) g/dL Urine 08/05/24 Range/Units 04:21 Urine Color Yellow (Yellow) Urine Appearance Clear (Clear) Urine pH 5.5 (5.0-9.0) Ur Specific [place] 1.011 (1.001-1.035) Urine Protein Negative (Negative) mg/dL Urine Glucose (UA) Negative (Negative) mg/dL Assessment and Plan Assessment and plan (1) TGA (transient global amnesia): Code(s): G45.4 - Transient global amnesia Status: Suspected Assessment and Plan: Transient deficits of confusion/repetitive questioning/amnesia discovered at 8:00 a.m. on 08/04 and resolved at 9:00 p.m. on 08/04. - admission for observation and telemetry - not candidate for thrombolytics or thrombectomy due to time frame and symptom resolution - head CT: No significant abnormality seen. - neurology consulted, awaiting formal recs - brain MRI w/wo ordered - echo w/Bubble ordered - neuro checks Q4 - monitor daily labs - check lipid panel, TSH, UDS, CRP, and A1C - start Atorvastatin 40 mg PO and Plavix 75 mg PO. Continue home ASA 81 mg. - consider 30 day event monitoring at discharge DDx: transient global amnesia, partial/complex seizures, TIA, CVA, infectious process, intoxication, thyroid disorder, viral process. Less likely cardiac in nature given no accompanying chest pain, shortness of breath, palpitations. (2) Hypertension: Qualifiers: Hypertension type: unspecified Qualified Code(s): I10 - Essential (primary) hypertension Code(s): I10 - Essential (primary) hypertension Status: Chronic Assessment and Plan: - chronic, currently 132/72 - continue home medications: Lisinopril 2.5 mg daily - monitor Plan Diet: Heart healthy GI Prophylaxis: Not currently indicated DVT Prophylaxis: SCDs Lines: Peripheral Code Status: Full code Quality VTE Prophylaxis VTE prophylaxis: mechanical ordered Hospitalist MIPS Advance Care Plan I have confirmed that the patient's Advanced Care Plan is present, code status is documented, or surrogate decision maker is listed in patient medical record.: Yes Medication Reconciliation I have utilized all available resources to obtain, update and review the patients current medications (includes all prescriptions, OTC, herbals, cannabis, and nutritional supplements).: Yes
--- NOTE | 2024-08-05 12:58 | ECHO_ITS ---
Patient Info Name: Olga Flower Age: 68 years : 1955 Gender: Female Ht: 64 in Wt: 165 lbs BSA: 1.86 m2 BP: 132 / 72 mmHg Technical Quality: Other Exam Date: 08/05/2024 1:55 PM Exam Location: Echo Lab Patient Status: Inpatient Admit Date: 08/05/2024 Staff Ordering Physician: Simran Gan APRN Lab Rn: Clarisa Mujica RDCS Attending Provider: Alfredo Troncoso MD Referring Physician: Elvia PYLE; Exam Type: CA echo doppler w bubble study Study Info Indications - transient confusion c/f TIA Complete two-dimensional, color flow and Doppler transthoracic echocardiogram is performed with agitated saline. Summary 1. Left ventricular chamber dimension is normal. 2. Left ventricular systolic function is normal, estimated at 65-70%. 3. There is mild concentric increased left ventricular wall thickness. 4. The left ventricular diastolic function is abnormal. 5. E/e' 12 is mildly elevated. 6. There is mild aortic valve sclerosis. 7. No pulmonary hypertension, estimated pulmonary arterial systolic pressure is 30 mmHg. Left Ventricle E/e' 12 is mildly elevated. Left ventricular chamber dimension is normal. Left ventricular systolic function is normal, estimated at 65-70%. There is mild concentric increased left ventricular wall thickness. The left ventricular diastolic function is abnormal. Right Ventricle Right ventricular chamber dimension is normal. Right ventricular systolic function is normal. Left Atria Left atrial chamber dimension is normal. Right Atria Right atrial chamber dimension is normal. Atrial Septum Agitated saline injection with and without valsalva maneuver opacified right side cardiac chambers without shunt to left side cardiac chambers. Intact interatrial septum visualized by 2D and agitated saline imaging. Aortic Valve The aortic valve is not well visualized. Cannot determine number of aortic valve leaflets. There is mild aortic valve sclerosis. There is no aortic valve stenosis. There is no aortic valve regurgitation. Pulmonic Valve There is no pulmonic regurgitation. Mitral Valve There is no mitral valve stenosis. There is no mitral valve regurgitation. Tricuspid Valve There is no tricuspid valve regurgitation. No pulmonary hypertension, estimated pulmonary arterial systolic pressure is 30 mmHg. Pericardium/Pleural There is no pericardial effusion. Inferior Vena Cava Normal inferior vena cava with >50% collapse upon inspiration consistent with normal right atrial pressure, 5 mmHg. Aorta The aortic root size at the sinus of Valsalva is normal. Left Ventricular Outflow Tract Name Value Normal LVOT 2D LVOT Diameter 2.0 cm LVOT Doppler LVOT Peak Velocity 122 cm/s LVOT Peak Gradient 6 mmHg LVOT Mean Gradient 3 mmHg LVOT VTI 22 cm LVOT VTI/AV VTI Ratio 0.6 LVOT Stroke Volume 66 ml LVOT CO 5.2 l/min LVOT CI 2.8 l/min/m2 Mitral Valve Name Value Normal MV Doppler MV Peak Gradient 4 mmHg MV Mean Gradient 1 mmHg MV Decel [place] 463 cm/s2 MV PHT 50 ms MV Area (PHT) 4.4 cm2 4.0-5.0 MV Area (Cont Eq VTI) 3.1 cm2 MV Diastolic Function MV E Peak Velocity 80 cm/s MV A Peak Velocity 94 cm/s MV E/A 0.8 MV Decel Time 173 ms MV Annular TDI MV Septal e' Velocity 5.3 cm/s >=8.0 MV E/e' (Septal) 15.1 <=8.0 MV Lateral e' Velocity 7.1 cm/s >=10.0 MV E/e' (Lateral) 11.3 <=8.0 MV e' Average 6.18 MV E/e' (Average) 13.2 Tricuspid Valve Name Value Normal TV Regurgitation Doppler TR Peak Velocity 250 cm/s TR Peak Gradient 25 mmHg Estimated PAP/RSVP RA Pressure 5 mmHg <=5 PA Systolic Pressure 30 mmHg <36 RV Systolic Pressure 30 mmHg <36 TV Annular TDI TV Lateral Madina s' Velocity 13.8 cm/s 9.5-18.7 Aortic Valve Name Value Normal AV Doppler AV Peak Velocity 184 cm/s AV Peak Gradient 11 mmHg AV Mean Gradient 6 mmHg AV VTI 37 cm AV Area (Cont Eq VTI) 1.8 cm2 >=3.0 AV Area (Cont Eq Mario) 2.0 cm2 AV V1/V2 Ratio 0.66 AV Regurgitation 2D LVOT Area 3.0 cm2 Ventricles Name Value Normal LV Dimensions 2D/MM IVS Diastolic Thickness (2D) 0.7 cm 0.6-1.0 LVID Diastole (2D) 4.7 cm 3.8-5.2 LVIW Diastolic Thickness (2D) 0.8 cm 0.6-0.9 LVID Systole (2D) 3.0 cm 2.2-3.5 LVOT Diameter 2.0 cm LV Mass (2D Cubed) 114.16 g 67.00-162.00 LV Mass Index (2D Cubed) 61 g/m2 43-95 Relative Wall Thickness (2D) 0.33 LV Fractional Shortening/Ejection Fraction 2D/MM LV Fractional Shortening (2D) 36 % 27-45 LV EF (2D Teicholz) 66 % 54-74 LV Diastolic Volume (4C MOD) 103 ml LV EF (4C MOD) 63 % LV Diastolic Length (4C) 7.0 cm LV Systolic Length (4C) 6.6 cm LV Stroke Volume (4C MOD) 65 ml Atria Name Value Normal LA Dimensions LA Volume (4C A-L) 48 ml LA Volume (BP A-L) 51 ml RA Dimensions RA Area (4C) 10.9 cm2 <=18.0 Report Signatures
--- NOTE | 2024-08-05 13:10 | ADMGEN ---
This patient, Olga Flower, was admitted to [facility] Surg Room 314-02. Patient/family oriented to hospital policies and general routines including ID bracelet, bed and alarms, visiting hours, pain management, procedures, bathroom and other care routines, personal items, smoking policy, room service/diet, and visiting hours. Information on how to activate the Rapid Response Team has been discussed. Patient/Family are encouraged to report perceived risks to care and to ask questions if they do not understand what they are told or what they should do.
--- NOTE | 2024-08-05 15:04 | WPDNEURCNPN ---
Consult date: 08/05/24 HPI: Olga Flower is a 68 year old female Has been admitted to the hospital through the emergency room for the complaints of feeling like she is in a brain fog as per the family she was found to be very confused around 8:00 a.m. with repetitive questioning even though she was acting appropriately there was no obvious neurological deficit, no gait abnormalities and by the time it was 9 p.m. she started acting normal she has been under a great deal of stress has not been sleeping well but she has not been as had any stroke in the past and has not had any seizures in the past she has been taking multiple medications but aspirin 81mg daily and she is not allergic to any medication, she is never a smoker currently alcohol intake initial exam in the emergency room was nonfocal her vital signs were normal so as the BMP with CBC show mild leukocytosis of 14.4 complete lab otherwise was normal and she was negative for the train viral screening initial CT scan of the head revealed no evidence of bleed he was admitted to the hospital with the diagnosis of transient global amnesia. PMFSH Past Medical History Medical History Vitamin D deficiency Excessive cerumen in both ear canals Vertigo Inguinal hernia Hyperlipidemia Screening for lipid disorders Screening for thyroid disorder Asymptomatic menopause Screening for malignant neoplasm of breast Screening for osteoporosis COVID-19 Thyroid disease Hypertension Family History Family History Father Parkinson disease Hypertension Heart disease COVID-19 Hospice care patient Mother Cerebrovascular accident Hypertension Sibling Hypertension Nervous disorder Tobacco abuse Polycystic kidney disease Social History Social History Smoking status: Never smoker Second hand tobacco smoke exposure: Yes Alcohol intake: never Substance use: never Substance use type: does not use Do You Feel Safe in your Home?: Yes Lack of Transportation: No Lack of Food: Never True Current Housing: I Have Housing Concerned About Future Housing: No Difficulty Paying Gas/Electric Bills: No Difficulty Paying for Meds: No Currently Unemployed: No Education: Bachelor's Degree Difficulty w/ Childcare or Family Care: No Living arrangements: with family Occupation/Education: retired 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): Female Spiritual care concerns: No Meds Home Medications and Allergies Home Medications ?Medication ?Instructions ?Recorded ?Confirmed ?Type fluticasone propionate 50 1 spray intranasal DAILY 04/14/20 08/05/24 History mcg/actuation nasal spray,suspension (Flonase Allergy Relief) aspirin 81 mg tablet,delayed 81 mg PO DAILY 11/11/20 08/05/24 History release (Adult Low Dose Aspirin) cholecalciferol (vitamin D3) 25 25 mcg PO DAILY 07/31/21 08/05/24 History mcg (1,000 unit) capsule docosahexaenoic acid (dha)-epa 120 1 cap PO DAILY 07/31/21 08/05/24 History mg-180 mg capsule (Fish Oil) multivitamin 1 tablet PO DAILY 07/31/21 08/05/24 History lisinopril 2.5 mg tablet 2.5 mg PO DAILY #90 tabs 04/29/23 08/05/24 Rx alendronate 70 mg tablet (Fosamax) 70 mg PO WEEKLY #4 tabs 05/12/24 08/05/24 Rx loratadine 10 mg tablet (Allergy 10 mg PO DAILY 08/05/24 08/05/24 History Relief (loratadine)) vitamin D3 125 mcg (5,000 1 cap PO DAILY@0800 08/05/24 08/05/24 History unit)-vitamin K2 90 mcg capsule Allergies Allergy/AdvReac Type Severity Reaction Status Date / Time No Known Allergies Allergy Verified 08/05/24 13:24 Vital Signs Vital Signs - 24 hr 08/04/24 19:36 08/05/24 01:06 08/05/24 03:58 Temperature 36.3 C L Pulse Rate 74 86 89 Respiratory Rate 15 19 Blood Pressure 148/71 H 138/94 H Pulse Oximetry 100 99 08/05/24 03:58 08/05/24 04:01 08/05/24 06:57 Temperature Pulse Rate 88 83 Respiratory Rate 18 18 18 Blood Pressure 139/69 136/73 Pulse Oximetry 100 100 100 08/05/24 08:45 08/05/24 14:00 Temperature 37.2 C 36.6 C Pulse Rate 72 88 Respiratory Rate 20 18 Blood Pressure 132/72 138/84 Pulse Oximetry 100 98 Results Labs 08/04/24 20:57 08/04/24 20:57 Labs: Short CBC 08/04/24 Range/Units 20:57 WBC 14.4 H (4.5-10.0) K/mm3 Hgb 14.1 (12.0-15.0) g/dL Hct 42.3 (37.0-47.0) % Plt Count 271 (150-375) k/mm3 BMP 08/04/24 20:57 Sodium 137 Potassium 4.0 Chloride 101 Carbon Dioxide 23 BUN 9 Creatinine 0.48 L Glucose 115 H Calcium 10.0 Liver Function 08/04/24 Range/Units 20:57 Total Bilirubin 0.6 (0.2-1.3) mg/dL AST 35 (14-36) U/L ALT 24 (6-35) U/L Alkaline Phosphatase 102 (38-126) U/L Albumin 4.6 (3.5-5.1) g/dL Urine 08/05/24 Range/Units 04:21 Urine Color Yellow (Yellow) Urine Appearance Clear (Clear) Urine pH 5.5 (5.0-9.0) Ur Specific [place] 1.011 (1.001-1.035) Urine Protein Negative (Negative) mg/dL Urine Glucose (UA) Negative (Negative) mg/dL
[2024-08-05 17:09] LABS: Amphetamine Screen Urine Negative (Negative); Barbiturate Screen Urine Negative (Negative); Benzodiazepines Screen Urine Negative (Negative); Cannabinoid Screen Urine Negative (Negative); Cocaine Screen Urine Negative (Negative); Methadone Screen Urine Negative (Negative); Opiate Screen Urine Negative (Negative); Phencyclidine Screen Urine Negative (Negative)
[2024-08-05 17:59] LABS: CRP 1.5 mg/dL (<1.0)
[2024-08-06] VITALS (7 sets, daily range): BP systolic 112–118; BP diastolic 59–63; PULSE 62–95; RESP 16–18; TEMP 36.1–36.9; O2SAT 98
[2024-08-06 06:40] LABS: Basophils Absolute Auto 0.1 K/mm3 (0.0-0.1); Basophils Percent Auto 0.7 % (0.2-1.2); Eosinophils Absolute Auto 0.2 K/mm3 (0-0.3); Eosinophils Percent Auto 1.7 % (0-4.4); Hematocrit 40.4 % (37.0-47.0); Hemoglobin 13.2 g/dL (12.0-15.0); Immature Granulocyte Absolute 0.03 K/mm3 (0.00-0.031); Immature Granulocyte Percent A 0.3 % (0-0.5); Lymphocytes Absolute Auto 2.99 K/mm3 (0.9-3.2); Lymphocytes Percent Auto 34.3 % (18.3-44.2); Mean Corpuscular HGB Conc 32.7 g/dl (32-36); Mean Corpuscular Hemoglobin 30.1 pg (26-34); Mean Platelet Volume 10.7 fl (7.4-10.4); Monocytes Absolute Auto 0.9 K/mm3 (0.1-0.6); Neutrophils Absolute Auto 4.6 K/mm3 (1.3-6.7); Platelet Count Result 248 k/mm3 (150-375); Red Blood Count 4.39 M/mm3 (4.2-5.4); Red Cell Distribution Width 13.7 % (11.5-14.5); White Blood Count 8.7 K/mm3 (4.5-10.0)
[2024-08-06 06:51] LABS: Anion Gap 7 mmol/L (4-12); Blood Urea Nitrogen 14 mg/dL (7-17); Calcium 9.1 mg/dL (8.4-10.2); Carbon Dioxide 26 mmol/L (22-30); Chloride 108 mmol/L (98-107); Cholesterol 203 mg/dL (0-200); Estimated CRCL calculation 75 ml/min; Estimated Glomerular Filt Rate > 60; Glucose 96 mg/dL (65-110); HDL Direct 62 mg/dL; Potassium 3.9 mmol/L (3.4-5.0); Sodium 141 mmol/L (137-145); Triglycerides 88 mg/dL (<150)
[2024-08-06 07:01] LABS: LDL Cholesterol Direct 103 mg/dL
[2024-08-06 07:29] LABS: Hemoglobin A1C 5.7 % (<5.7)
[2024-08-06] MEDS: ATORVASTATIN 40 MG TABLET PO (09:37)
[2024-08-06] MEDS: MULTIVITAMINS THERAPEUTIC TAB (*BKC) 1 TABLET PO (09:37)
[2024-08-06] MEDS: ASPIRIN 81 MG ENTERIC TABLET PO (09:37)
[2024-08-06] MEDS: CLOPIDOGREL BISULFATE 75 MG TABLET PO (09:37)
[2024-08-06] MEDS: LORATADINE 10 MG TABLET PO (09:37)
[2024-08-06] MEDS: CHOLECALCIFEROL 1,000 UNITS TABLET 1000 UNITS PO (09:38)
[2024-08-06] MEDS: lisinopriL 2.5 MG TABLET PO (09:38)
--- NOTE | 2024-08-06 12:38 | WPDNEUROLOGY ---
Neurology EEG Report General Information Date of Study: 08/06/24 TEST EEG
--- NOTE | 2024-08-06 12:40 | WPDNEUROLOGY ---
Neurology EEG Report General Information Date of Study: 08/06/24 TEST EEG
--- NOTE | 2024-08-06 12:42 | WPDNEUROLOGY ---
Neurology EEG Report General Information Date of Study: 08/06/24 TEST EEG
--- NOTE | 2024-08-06 12:53 | WPDNEURCNPN ---
Assessment and Plan Assessment and plan (1) TGA (transient global amnesia): Code(s): G45.4 - Transient global amnesia Status: Suspected Plan 1. Transient global amnesia 2. Normal EEG with no evidence of paroxysmal activity 3. Consider the possibility of underlying anxiety. Continue the medication as such including aspirin 81mg daily, lisinopril 2.5mg daily, and have regular follow-up with the family physician if unfortunately these episodes recur in the future then she will need to be started on the medication. Consult date: 08/06/24 HPI: Olga Flower is a 68 year old female Has been admitted to the hospital through the emergency room for the complaints of feeling like she is in a brain fog. As per the family she was found to be fairly confused around 8:00 a.m. with Repetition of questioning even though she was acting appropriately, there was no obvious neurological deficit, no difficulties in ambulation and by the time it was 9:00 p.m. she started acting normal. SHe has been under a great deal of stress, has not been sleeping well but she was not sure as if she had a stroke and also she has not had any seizures in the past .she has been taking multiple medications which include aspirin 81mg daily. Not allergic to any medication she has never smoked ,currently alcohol intake . Initial examination in the emergency room was nonfocal. Her vital signs were normal so as the BMP with CBC though she had mild leukocytosis of 14.4. Complete labs otherwise was normal and she was negative for the routine viral screening. CT of the head revealed no evidence of bleed , she was admitted to hospital for further evaluation for the diagnosis of transient global amnesia. in the past she has ongoing diagnosis of vitamin-D deficiency, hyperlipidemia, thyroid disease, and hypertension, as mentioned before she has never alcohol intake or or substance user, on initial evaluation in the emergency room her list of medications included lisinopril 2.5mg daily, loratadine 10mg daily, and nasal spray with vitamin supplements. Her initial vital signs were normal, BMP was normal, and must scan was normal as well. Subsequently MRI of the brain has shown only mild nonspecific cerebral white matter disease. Initial CT of the head was negative for the bleed, hydrocephalus, echocardiogram revealed mild aortic valve sclerosis otherwise normal Review of Systems Review of Systems: All systems reviewed & are unremarkable except as noted in HPI and below PMFSH Past Medical History Medical History Vitamin D deficiency Excessive cerumen in both ear canals Vertigo Inguinal hernia Hyperlipidemia Screening for lipid disorders Asymptomatic menopause Screening for malignant neoplasm of breast Screening for osteoporosis COVID-19 Thyroid disease hypothyroidism, resolved per patient Hypertension Family History Family History Father Parkinson disease Hypertension Heart disease COVID-19 Hospice care patient Mother Cerebrovascular accident Hypertension Sibling Hypertension Nervous disorder Tobacco abuse Polycystic kidney disease Social History Social History Smoking status: Never smoker Second hand tobacco smoke exposure: Yes Alcohol intake: never Substance use: never Substance use type: does not use Do You Feel Safe in your Home?: Yes Lack of Transportation: No Lack of Food: Never True Current Housing: I Have Housing Concerned About Future Housing: No Difficulty Paying Gas/Electric Bills: No Difficulty Paying for Meds: No Currently Unemployed: No Education: Bachelor's Degree Difficulty w/ Childcare or Family Care: No Living arrangements: with family Occupation/Education: retired 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): Female Spiritual care concerns: No Meds Home Medications and Allergies Home Medications ?Medication ?Instructions ?Recorded ?Confirmed ?Type fluticasone propionate 50 1 spray intranasal DAILY 04/14/20 08/05/24 History mcg/actuation nasal spray,suspension (Flonase Allergy Relief) aspirin 81 mg tablet,delayed 81 mg PO DAILY 11/11/20 08/05/24 History release (Adult Low Dose Aspirin) cholecalciferol (vitamin D3) 25 25 mcg PO DAILY 07/31/21 08/05/24 History mcg (1,000 unit) capsule docosahexaenoic acid (dha)-epa 120 1 cap PO DAILY 07/31/21 08/05/24 History mg-180 mg capsule (Fish Oil) multivitamin 1 tablet PO DAILY 07/31/21 08/05/24 History lisinopril 2.5 mg tablet 2.5 mg PO DAILY #90 tabs 04/29/23 08/05/24 Rx alendronate 70 mg tablet (Fosamax) 70 mg PO WEEKLY #4 tabs 05/12/24 08/05/24 Rx loratadine 10 mg tablet (Allergy 10 mg PO DAILY 08/05/24 08/05/24 History Relief (loratadine)) vitamin D3 125 mcg (5,000 1 cap PO DAILY@0800 08/05/24 08/05/24 History unit)-vitamin K2 90 mcg capsule Allergies Allergy/AdvReac Type Severity Reaction Status Date / Time No Known Allergies Allergy Verified 08/05/24 13:24 Vital Signs Vital Signs - 24 hr 08/05/24 14:00 08/05/24 14:30 08/05/24 16:02 Temperature 36.6 C Pulse Rate 88 78 Respiratory Rate 18 Blood Pressure 138/84 Pulse Oximetry 98 Oxygen Delivery Room Air 08/05/24 20:00 08/05/24 20:00 08/05/24 22:00 Temperature 36.9 C Pulse Rate 71 76 Respiratory Rate 18 Blood Pressure 142/97 H Pulse Oximetry 100 Oxygen Delivery Room Air 08/06/24 00:00 08/06/24 04:00 08/06/24 06:00 Temperature 36.9 C Pulse Rate 78 65 62 Respiratory Rate 16 Blood Pressure 112/63 Pulse Oximetry 98 Oxygen Delivery 08/06/24 08:00 08/06/24 08:00 08/06/24 08:05 Temperature Pulse Rate 78 78 Respiratory Rate 16 Blood Pressure Pulse Oximetry 98 98 Oxygen Delivery Room Air Room Air Exam Narrative: exam revealed her to be awake alert cooperative in no obvious acute distress, somewhat hyper but able to follow all the verbal commands appropriately, without any obvious anxiety or depression, head normocephalic with no bruit, ear nose throat examination normal, neck supple with no cervical bruit, heart regular with no murmur lungs clear to auscultation with no rhonchi or crepitation, abdomen is soft nontender, neurologically she had awake alert oriented x3, his speech not dysphasic not dysarthric not dysphonic, pupils round regular react to light equally feels the vision full in all 4 quadrants working finger confrontation extraocular movements full with no nystagmus facial sensation intact face symmetrical tongue in the oral cavity with no fasciculation motor examination revealed her to have normal strength in upper and lower extremities proximally and distally with deep tendon reflex 1 to2+ in upper and lower extremities plantars downgoing there is no evidence of gross sensory or cerebellar deficit. Results Labs 08/06/24 06:24 08/06/24 06:24 Labs: Short CBC 08/06/24 Range/Units 06:24 WBC 8.7 (4.5-10.0) K/mm3 Hgb 13.2 (12.0-15.0) g/dL Hct 40.4 (37.0-47.0) % Plt Count 248 (150-375) k/mm3 BMP 08/06/24 06:24 Sodium 141 Potassium 3.9 Chloride 108 H Carbon Dioxide 26 BUN 14 D Creatinine 0.59 L Glucose 96 Calcium 9.1
--- NOTE | 2024-08-06 13:15 | WPDNEUROLOGY ---
Neurology EEG Report General Information Date of Study: 08/06/24 TEST eeg DIAGNOSIS transient global amnesia CONDITION OF RECORDING awake drowsy and sleep EEG NUMBER 25-60 CLINICAL HISTORY patient reports she had an episode that lasted about 8hours of no memory when she got up .she lost most of the day until family brought her to the ER EEG DESCRIPTION basic resting occipital frequently consists of low to medium voltage well-organized 9 to 10 hertz per 2nd alpha with good anteroposterior gradient. Alpha activity symmetrical he blocked with eyes opening. Low-voltage beta activity seen with waxing and waning of alpha activity posteriorly during drowsiness. Bilateral symmetrical sleep activity seen during sleep normal and symmetrical spindles. Hyperventilation not done. Photic stimulation not done. Non paroxysmal. Nonfocal. Nonlateralizing. IMPRESSION normal record. And EEG can be normal in the setting of the partial or partial complex seizures ,clinical correlation recommended
--- NOTE | 2024-08-06 15:04 | PM.DS ---
DS: Admitting Diagnosis Discharge Date 08/06/2024 Admitting Diagnosis Transient global amnesia DS: Discharge Diagnosis Discharge Diagnosis (1) TGA (transient global amnesia): Code(s): G45.4 - Transient global amnesia Status: Suspected Assessment and Plan: Resume ASA/Lisinopril Follow-up if symptoms return (2) Hypertension: Qualifiers: Hypertension type: unspecified Qualified Code(s): I10 - Essential (primary) hypertension Code(s): I10 - Essential (primary) hypertension Status: Chronic Assessment and Plan: Lisinopril 2.5 mg daily Plan Disposition: Discharged to Home DS: Summary Hospital Course Reason for hospitalization: Transient global amnesia Hospital Course: Patient was 68 y/o F presented here for further evaluation of altered mental status with PMH of HLD, HTN, hypothyroidism (resolved per patient), and vertigo. The patient had presented to the ER from the local urgent care on 08/04 for further evaluation of mental fog . She initially sought care at a local believing her symptoms were secondary to a UTI. UA at the urgent care hold out a UTI. She was directed to the emergency department for further testing and evaluation. She reports that the altered mental status was discovered/recognized at 8:00 a.m. on 08/04 later after she woke up. Alteration was further described as repetitive questioning, forgetting to eat, forgetting her routine, not remembering conversations with her family members. She denied associated focal weakness, focal numbness, dysarthria, changes in vision, dizziness, headache, gait disturbance/balance disruption. Confusion resolved around 9:00 p.m. on 08/04, patient believes it started to improve around 6-7 p.m. She reports the confusion has been precipitated by increased stress and lack of sleep. She estimates she has been sleeping 7-8 hrs per night, denies any recent deviation from this except while in the ER overnight last night. She denies any new or recent changes to her medications. She does report she started a Magnesium breakthrough (bio optimizer) supplement 250 mg daily approximately 1 week ago. No previous history of CVA or seizures. She denies any recreational drug use or, fever, chills, body aches, cough, shortness of breath, abdominal pain, or chest pain. ETOH use is once per month. Denies any recent trauma or head strike. Head CT showed no significant abnormality. MRI brain with no acute findings and EEG showing normal record. echocardiogram was performed which showed LVEF of 65-70% and no shunting noted. Patient with complete resolution of symptoms alert and oriented x4 no acute findings this time secondary to patient's extreme stress and recent insomnia if symptoms were to return she was advised to seek immediate medical attention. patient seen and assessed at time of discharge in no acute distress back to her baseline at bedside both acknowledged and agreed with discharge plan. Status at Discharge Functional status at discharge: independent ambulation Overall status at discharge: patient is back to baseline Time Spent with Patient Time attestation: Total time spent providing and/or coordinating discharge services: Time spent: Greater than 30 minutes Exam Const: General: comfortable and no acute distress Other: , female, nontoxic appearance HENMT: Face/Nose/Sinus: Normal nares present Mouth: Yes moist mucous membranes Eyes: General: appearance normal, both eyes and all related structures Sclera: sclerae normal Pupils: Equal, round and reactive pupils present EOM: EOMs intact bilaterally Resp: Effort & Inspection: normal respiratory effort Auscultation: clear to auscultation bilaterally Cardio: Rate: regular rate Rhythm: regular rhythm Other: S1-S2 present without murmur, rub, ectopy GI: Other: Abdomen soft, nondistended, nontender. Skin: General skin exam: normal color and no rashes or lesions noted Wounds: no wounds Neuro: Cranial nerves: Yes Equal, round and reactive pupils present Speech: normal speech Motor exam (neuro): 5/5 motor strength present throughout Sensory Exam: normal sensation Other: A&O x4. NIHSS: 0. Extrem: General: normal to inspection Psych: Mental Status: mental status grossly normal Affect: normal affect Other: Good insight and judgment, very pleasant DS: Data Data Completed and Pending Labs on day of discharge: Labs from last 24 hours 08/06/24 08/05/24 08/05/24 06:24 15:45 15:20 WBC 8.7 RBC 4.39 Hgb 13.2 Hct 40.4 MCV 92.0 MCH 30.1 MCHC 32.7 RDW 13.7 Plt Count 248 MPV 10.7 H Immature Gran % (Auto) 0.3 Neut % (Auto) 53.0 Lymph % (Auto) 34.3 Riley % (Auto) 10.0 H Eos % (Auto) 1.7 Baso % (Auto) 0.7 Lymph # (Auto) 2.99 Riley # (Auto) 0.9 H Eos # (Auto) 0.2 Baso # (Auto) 0.1 Abs Immat Gran (auto) 0.03 Absolute Neuts (auto) 4.6 Absolute Nucleated RBC 0.000 Nucleated RBC % 0.0 Sodium 141 Potassium 3.9 Chloride 108 H Carbon Dioxide 26 Anion Gap 7 BUN 14 D Creatinine 0.59 L Estim Creat Clear Calc 75 Estimated GFR > 60 Glucose 96 Hemoglobin A1c 5.7 Calcium 9.1 C-Reactive Protein 1.5 H Triglycerides 88 Cholesterol 203 H LDL Cholesterol Direct 103 HDL Direct 62 TSH (Reflex) 3.410 Urine Opiates Screen Negative Urine Methadone Screen Negative Ur Barbiturates Screen Negative Ur Phencyclidine Scrn Negative Ur Amphetamine Screen Negative U Benzodiazepines Scrn Negative Urine Cocaine Screen Negative U Cannabinoids Screen Negative Imaging Radiologist's impression: History: Altered mental status Technique: Axial non-contrast imaging of the brain was performed. Dose reduction technique was used on this scan by utilizing automated exposure control and iterative reconstruction technique. The dose-length product (DLP) was 681.00 mGy-cm. Findings: There is no evidence of intracranial hemorrhage, mass lesion, or acute infarct. Brain parenchyma appears normal. The ventricles and subarachnoid spaces are normal in size. The calvarium appears normal. The visualized paranasal sinuses and mastoid air cells are clear. Impression: No significant abnormality seen. EXAMINATION: MR brain/brain stem wo/w con DATE: 08/06/2024 07:54 INDICATION: Transient global amnesia. TECHNIQUE: Magnetic resonance imaging (MRI) of the brain and brainstem was performed without and with 15 mL MultiHance intravenous contrast. COMPARISON: Head CT 08/05/2024 FINDINGS: There are scattered areas of nonspecific increased T2-weighted signal intensity in the cerebral white matter. There is no intracranial hemorrhage, acute infarction, or abnormal intracranial mass lesion. The ventricles are normal in size. There is mild mucosal thickening in the paranasal sinuses. The orbits are normal. The mastoid air cells are normal. IMPRESSION: 1. Mild nonspecific cerebral white matter disease, which likely represents chronic small vessel ischemic disease. Discharge Plan Discharge Attending physician on discharge: Delmar Jackson Consulting providers: Bill Magana; Zoila Alberto; Simran Gan; Leopoldo Ponce; [place] George V.; Colt Mims Discharging Clinician: Zoila Alberto Anticipated Discharge Date/Time: 08/06/24 14:50 Patient Disposition: Home, Self-Care Activity: may shower, unlimited and as tolerated Diet: as tolerated Discharge Instructions: Transient Global Amnesia Resume ASA and Lisinopril EEG was performed which showed normal record EEG can be normal in the setting of the partial or partial complex seizures ,clinical correlation recommended Brain MRI with no acute findings If symptoms return seek medical attention immediately Cholestrol 203/LDL 103/HDL 62 How can you care for yourself at home? ? Keep track of any new symptoms or changes in your symptoms. ? Rest until you feel better. ? Be safe with medicines. Take your medicines exactly as prescribed. Call your doctor if you think you are having a problem with your medicine. ? Do not drive after taking a prescription pain medicine. ? Ensure to follow-up with primary care physician as indicated and provide updated medication list provided to you at discharge. When should you call for help? Call 911 anytime you think you may need emergency care. For example, call if: ? You passed out (lost consciousness). Call your doctor now or seek immediate medical care if: ? You have new symptoms like fever, difficulty breathing, Chest pain, vomiting, or rash. ? You have new or different pain. ? You are confused and are having trouble thinking clearly. ? Your symptoms are getting worse. Watch closely for changes in your health, and be sure to contact your doctor if: ? You do not get better as expected. Patient Instructions: Antibiotic Form, Transient Global Amnesia (GEN) Patient Language: Gabonese Stand Alone Forms: General Discharge Information Follow-up/Referrals: [facility] MD [Primary Care Provider] - 2 Weeks Discharge Medications: Continued fluticasone propionate [Flonase Allergy Relief] 50 mcg/actuation spray,suspension 1 spray intranasal DAILY Rx Instructions: administer into each nostril aspirin [Adult Low Dose Aspirin] 81 mg tablet,delayed release (DR/EC) 81 mg PO DAILY multivitamin Tablet 1 tablet PO DAILY Fish Oil 120-180 mg capsule 1 cap PO DAILY loratadine [Allergy Relief (loratadine)] 10 mg tablet 10 mg PO DAILY vitamin D3-vitamin K2 125-90 mcg capsule 1 cap PO DAILY@0800 Discontinued cholecalciferol (vitamin D3) 25 mcg (1,000 unit) capsule 25 mcg PO DAILY alendronate [Fosamax] 70 mg tablet 70 mg PO WEEKLY Qty: 4 6RF No Action lisinopril 2.5 mg tablet 2.5 mg PO DAILY Qty: 90 1RF Date of admission: 08/05/24 07:13 Primary Care Provider: [facility] Admitting Provider: Alfredo Troncoso Attending physician on admission: Delmar Jackson Condition: Stable Quality VTE Prophylaxis VTE prophylaxis: mechanical ordered -Patient's previous records reviewed on admission -ER notes reviewed in detail on admission -discussed all findings and current treatment plan with patient/Family/POA -Consultations reviewed for recommendations -Patient's disposition for safe discharge discussed with egg caser Dictation performed by [employer] direct speech recognition software, therefore microcomputer support specialist variants and typographical errors may occur. Hospitalist MIPS Heart Failure (Exclusion) Patient has history of Heart Transplant or Left Ventricular Assistive Device?: No IF YES, STOP HERE Heart Failure (Qualifier) Patient has current or prior documentation of LVEF less than or equal to 40%, or mod/servere depressed LVSF?: No IF NO, STOP HERE
== END 2024-08-06 15:54 | disposition home or self-care (01) ==
LOC: ANHED 08-05 07:17 → ANH3MEDSUR 08-06 07:40
PROVIDERS: Emergency Medicine; Student in an Organized Health Care Education/Training Program; Admitting Provider General Practice; Emergency Provider Emergency Medicine; PCP Family Medicine; Visit Provider Internal Medicine
DX: G45.4 Transient global amnesia (principal); I10 Essential (primary) hypertension; E78.5 Hyperlipidemia, unspecified; E55.9 Vitamin D deficiency, unspecified; Z20.822 Contact with and (suspected) exposure to COVID-19; Z86.16 Personal history of COVID-19; Z79.82 Long term (current) use of aspirin; Z79.899 Other long term (current) drug therapy; Z78.0 Asymptomatic menopausal state
CPT/HCPCS: 36415; 70450; 70553; 80048; 80053; 80061; 80307; 81001; 81025; 83036; 84443; 85025; 85610; 85730; 86140; 87086; 87637; 93306; 95816; 96375; 99285; A9270; A9577; G0378